=== PATIENT | male | born 1970 | race Caucasian/White ===

== ENCOUNTER 2020-01-04 08:53 | Inpatient (IN) | payer OTHER ==
[2020-01-04] MEDS ORDERED: MIDAZOLAM HCL 2 MG/2 ML SINGLE DOSE VIAL ONE ×4 (10:56→13:23)
[2020-01-04] MEDS ORDERED: SODIUM CHLORIDE 0.9% P/F 10 ML VIAL IJ ONE (10:56)
[2020-01-04] MEDS ORDERED: BUPIVACAINE LIPOSOME/PF (EXPAREL) 266 MG/20 ML VIAL ONE (10:56)
--- NOTE | 2020-01-04 11:34 | HP ---
History & Physical Update - History History: No Change - Physical Physical: No Change - Assessment Assessment: No Change - Plan Plan: No Change
[2020-01-04] MEDS ORDERED: PROPOFOL 20 ML ONE ×6 (11:57)
[2020-01-04] MEDS ORDERED: SUCCINYLCHOLINE CHLORIDE 200 MG/10 ML SYRINGE ONE (11:58)
[2020-01-04] MEDS ORDERED: FLUTICASONE PROP 0.05% 16 GM NASAL SPRAY NS PRN (11:59)
[2020-01-04] MEDS ORDERED: CEFAZOLIN 3 GM in DEXTROSE 5%-WATER - 100 ML IVPB ONE (12:00)
[2020-01-04] MEDS ORDERED: TRANEXAMIC ACID 1000 MG/10 ML VIAL IVPUSH ONE (12:00)
--- NOTE | 2020-01-04 12:01 | PN ---
Progress Note (short form) - Note Progress Note: 49M s/p RIGHT femur osteotomy, tumor curettage/biopsy, bone graft, plate fixation POD #0. -Pain control: per anaesthesia team. -DVT PPx: -Chemical: ASA 81mg PO BID x 6 weeks. -Mechanical: JOCE's, SCD's. -Incentive spirometry q15 min. -PT/OT/Rehab, OOB. -TTBW RLE. -Post-op Ancef x 3 doses. -f/u post-op TOV: 8 hours max. -f/u AM labs. -Diet as tolerated. -Care per medical hospitalist team. -Discharge planning: f/u [facility] [place] [facility] 7-10 days after discharge; call for appointment . -Will follow. Fabien Durbin MD (Orthopaedic Surgery).
[2020-01-04] MEDS ORDERED: ceFAZolin SODIUM 1 GM VIAL ONE ×2 (12:09→14:42)
[2020-01-04] MEDS ORDERED: VANCOMYCIN 1,000 MG VIAL (RESTRICTED TO ID ONLY) ONE (12:12)
[2020-01-04] MEDS ORDERED: ePHEDrine SULFATE 50 MG/1 ML AMPULE ONE (12:37)
[2020-01-04] MEDS ORDERED: TRANEXAMIC ACID 1000 MG/10 ML VIAL ONE (14:37)
[2020-01-04] MEDS ORDERED: MAGNESIUM HYDROX 2400MG/30ML ORAL SUSPENSION 30 ML CUP PO PRN (15:18)
[2020-01-04] MEDS ORDERED: MAG HYDROX/AL HYDROX/SIMETH 30 ML UNIT-DOSE CUP PO PRN (15:18)
[2020-01-04] MEDS ORDERED: ONDANSETRON 4 MG/2 ML VIAL IVPUSH PRN ×2 (15:18→15:27)
--- NOTE | 2020-01-04 15:18 | OP ---
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 Osteotomy. 2. Tumor curettage/biopsy. 3. Bone allograft (35cc). 4. Plate fixation Implants: 8-hole Synthes lateral condylar femoral plate Post-Operative Diagnosis: Same as Pre-op Surgeon: Fabien Durbin Android Framework Developer: Trevor Durbin Anesthesiologist/ANIMAL DAMAGE CONTROL AGENT: Brendon Carpenter Anesthesia: Spinal Specimens Removed: Right femoral intramedullary content - ? osteochondroma Estimated Blood Loss (mls): 100 Drains & Tubes with Location: 1 x deep HemoVac (subfascial) Fluid Volume Replaced (mls): 1,300 (Crystalloid) Operative Report Dictated: Yes
[2020-01-04] MEDS ORDERED: KETOROLAC TROMETHAMINE 30 MG/1 ML VIAL ONE (15:23)
[2020-01-04] MEDS ORDERED: oxyCODONE HCL 5 MG TABLET PO PRN (15:27)
[2020-01-04] MEDS ORDERED: PROMETHAZINE HCL 25 MG/1 ML VIAL IVPUSH PRN (15:27)
[2020-01-04] MEDS ORDERED: KETOROLAC TROMETHAMINE 30 MG/1 ML VIAL IVPUSH ONE (15:28)
[2020-01-04] MEDS ORDERED: LACTATED RINGERS SOLUTION 1,000 ML IV SCH (15:30)
[2020-01-04] MEDS: ACETAMINOPHEN 325 MG TABLET (FP) PO SCH ×2 (15:55→21:20)
[2020-01-04] MEDS: oxyCODONE HCL 5 MG TABLET PO PRN ×2 (17:08→21:21)
[2020-01-04] MEDS ORDERED: PT OWN MED DRAWER 7, Y5N ONE (21:11)
[2020-01-04] MEDS: CEFAZOLIN 3 GM in DEXTROSE 5%-WATER - 100 ML IVPB SCH (21:20)
[2020-01-04] MEDS: ASPIRIN COATED 81 MG TABLET.EC PO SCH (21:21)
[2020-01-04] MEDS: SENNOSIDES/DOCUSATE COMBO (SENNA PLUS) TABLET (UD) PO SCH (21:21)
[2020-01-04] MEDS: ALBUTEROL SO4 HFA INHALER IH SCH (21:22)
[2020-01-04] MEDS ORDERED: ASPIRIN 325 MG TABLET PO SCH (22:00)
[2020-01-04] MEDS: KETOROLAC TROMETHAMINE 30 MG/1 ML VIAL IVPUSH PRN (23:42)
[2020-01-05] MEDS: ACETAMINOPHEN 325 MG TABLET (FP) PO SCH ×2 (03:11→09:52)
[2020-01-05] MEDS: CEFAZOLIN 3 GM in DEXTROSE 5%-WATER - 100 ML IVPB SCH ×2 (03:12→09:36)
--- NOTE | 2020-01-05 07:49 | PN ---
Progress Note (short form) - Note Progress Note: ORTHOPAEDIC SURGERY POD #1 Pt seen and examined. Doing well post op. Pain well controlled. Has been oob ambulating with rolling walker assist. Passing flatus. Tolerating diet. Voiding without issue. Denies cp/sob, n/v/d. Last Vital Signs Temp Pulse Resp BP Pulse Ox 98.0 F 73 18 112/60 98 01/05/20 06:00 01/05/20 06:00 01/05/20 06:00 01/05/20 06:00 01/05/20 06:00 GEN: A&0x3, NAD CV: RRR Lungs: Unlabored respirations on room air ABD: soft, non-distended, non-tender. RLE: hemovac in place with 215 sanguinous drainage in reservoir. Surgical dressing c/d/i. Compartments soft, no calf tenderness or swelling noted b/l. TEDs/SCDS in place b/l. 5/5 dorsi/plantar flexion b/l, 5/5 EHl/FHL b/l, SILT b/l les. A/P: 49 y/o M with history ofRight femur enchondroma/osteosarcoma. Now POD #1 s/p s/p Right femur open: 1. Osteotomy. 2. Tumor curettage/biopsy. 3. Bone allograft (35cc). 4. Plate fixation. Pt doing well post-operatively. Afeb rile, VSS. Pain controlled. -Pain control as ordered -DVT PPx: Chemical: ASA 81 mg po BID x 6 weeks, Mechanical: JOCE's, SCD's -Incentive Spirometry -PT/OT/Rehab, OOB -WBAT RLE -Keep drain in place, monitor I&Os -f/u am labs -Home meds ordered as appropriate -Care per medical hospitalist team. Above plan discussed with Drs. Westfall and víctor
--- NOTE | 2020-01-05 08:09 | OP ---
DATE OF OPERATION: DATE OF DICTATION: 01/04/2020 SURGEON: Fabien Durbin MD MOLECULAR MODELER: Trevor Durbin MD PREOPERATIVE DIAGNOSIS: Low-grade chondrocarcinoma right femur. POSTOPERATIVE DIAGNOSIS: Low-grade chondrocarcinoma right femur. OPERATION: 1. Osteotomy, right femur with prophylactic plating of right femur/internal fixation. ([id number]) 2. Curettage, distal diaphysis and metaphysis with right femur with bone allograft packing. ([id number]) ANESTHESIA: Conscious sedation with spinal anesthesia and peripheral nerve block. ANTIBIOTICS GIVEN: Ancef 2 g, 1 g vancomycin preoperative; 1 g Ancef given at the time of release of tourniquet. TOURNIQUET TIME: About 2 hours and 20 minutes. BLOOD LOSS: Approximately 100 mL. INDICATION: Patient presented for a knee arthritis, but after careful clinical as well as radiological investigation, an enchondromatous tumor encountered in the diaphyseal-metaphyseal region of the bone, the concern was localized pain with associated expansion of bone with endosteal irregularity but stippled calcification indicative of cartilaginous tumor is clearly noted radiologically. OPERATION DETAILS: The patient correctly identified, brought to operating room. Right lower extremity was prepped, free draped in the routine manner with Betadine scrub solution, wiped off with alcohol, DuraPrep applied. A tourniquet was applied. A lateral incision extending from fibular head right up to the proximal third of the femur. The dissection was taken through the fascia. Fascia was opened with digital dissection working the stripping angle, that is the attachment of the vastus lateralis to the interosseus muscular septum. The muscle was lifted off the bone using Hohmann retractor. The interosseus circumflex vessels were all dealt with with bipolar Bovie. No bleeding encountered. An intraoperative x-ray was taken to confirm the level of the tumor and stippled calcification. A window osteotomy measuring approximately 12 cm was performed. This was elliptical shaped osteotomy to prevent stress riser fracture. Using curets, the entire tumor was resected. We used dental mirrors to evaluate the roof, the floor, and the sidewalls of the bone bed. All tumor was resected. There was no need for burring of the bone, as microscopically there was no evidence of any tumor left residually behind. We used multiple x-rays to ensure that the pedestal was reached as well as all stippled calcification removed; this is clearly seen on the microscopic appreciation of the tissue removed. The wounds were thoroughly lavaged throughout the operation. The soft tissue was protected with a sponge, so that all spillage was onto the sponge and not onto the muscle. Once this had been performed, the canal was packed with cancellous chips. An 8-hole Synthes condylar plate was applied to the bone bed and fixed solidly with no complications. Two screws proximal; because the bone was intact, we did not think it was necessary to use 3 screws proximal to the actual end of the bone. We also fixed the bone in the osteotomy area with interrupted screws. The distal screws were evaluated both on AP and lateral x-ray and found to be well seated. Wounds were thoroughly lavaged again. Closure: Fascia 1 Vicryl, subcutaneous 1 and 2-0 Vicryl, skin gissel. Drainage: A 1/8-inch Hemovac x1. OVERALL COMMENT: Operation went extremely well with minimal blood loss. MD ROSS Aguilar/[id number] MTDD
[2020-01-05] MEDS: oxyCODONE HCL 5 MG TABLET PO PRN ×2 (08:10→19:38)
--- NOTE | 2020-01-05 08:22 | HP ---
HISTORY OF PRESENT ILLNESS: 49 year-old male with a PMH significant for HTN, HLD, hidradenitis, and right femor enchondroma/osteosarcoma, s/p right femure osteotomy, tumor curettage/biopsy, bone graft, and plate fixation on 01/04/[address] Fabien Durbin. Recent Travel: No PAST MEDICAL HISTORY: Hypertension Hyperlipidemia Hidradenitis Right femor enchondroma/osteosarcoma Renal colic PAST SURGICAL HISTORY: Right rotator cuff repair Social History: Smoking: never Alcohol: rare Drugs: no Family history: non-contributory Allergies No Known Allergies Allergy (Verified 01/03/20 11:03) HOME MEDICATIONS: Home Medications Medication Instructions Recorded Albuterol Sulfate [Albuterol 8.5 gm IH BID 01/03/20 Sulfate Hfa] Amlodipine Besylate 5 mg PO DAILY 01/03/20 Fluticasone Prop 0.05% Nasal 1 - 2 spray NS BID PRN 01/03/20 [Flonase -] Hydrochlorothiazide [Hctz -] 25 mg PO DAILY 01/03/20 Valsartan [Diovan] 160 mg PO DAILY 01/03/20 REVIEW OF SYSTEMS CONSTITUTIONAL: Absent: fever, chills, diaphoresis, generalized weakness, malaise, loss of appetite, weight change HEENT: Absent: rhinorrhea, nasal congestion, throat pain, throat swelling, difficulty swallowing, mouth swelling, ear pain, eye pain, visual changes CARDIOVASCULAR: Absent: chest pain, syncope, palpitations, irregular heart rate, lightheadedness, peripheral edema RESPIRATORY: Absent: cough, shortness of breath, dyspnea with exertion, orthopnea, wheezing, stridor, hemoptysis GASTROINTESTINAL: Absent: abdominal pain, abdominal distension, nausea, vomiting, diarrhea, constipation, melena, hematochezia GENITOURINARY: Absent: dysuria, frequency, urgency, hesitancy, hematuria, flank pain, genital pain MUSCULOSKELETAL: +RLE pain Absent: myalgia, arthralgia, joint swelling, back pain, neck pain SKIN: Absent: rash, itching, pallor HEMATOLOGIC/IMMUNOLOGIC: Absent: easy bleeding, easy bruising, lymphadenopathy, frequent infections ENDOCRINE: Absent: unexplained weight gain, unexplained weight loss, heat intolerance, cold intolerance NEUROLOGIC: Absent: headache, focal weakness or paresthesias, dizziness, unsteady gait, se izure, mental status changes, bladder or bowel incontinence PSYCHIATRIC: Absent: anxiety, depression, suicidal or homicidal ideation, hallucinations. PHYSICAL EXAMINATION Vital Signs - 24 hr 01/04/20 01/04/20 01/04/20 09:53 15:16 15:21 Temperature 98.9 F 98.4 F Pulse Rate 74 71 70 Respiratory 18 15 13 Rate Blood Pressure 140/96 148/90 147/85 O2 Sat by Pulse 96 100 100 Oximetry (%) 01/04/20 01/04/20 01/04/20 15:26 15:31 15:36 Temperature Pulse Rate 66 68 69 Respiratory 11 12 12 Rate Blood Pressure 142/87 145/79 150/75 O2 Sat by Pulse 100 100 100 Oximetry (%) 01/04/20 01/04/20 01/04/20 15:51 16:03 16:34 Temperature 98.4 F 98.1 F Pulse Rate 73 73 65 Respiratory 13 13 16 Rate Blood Pressure 141/78 141/78 126/69 O2 Sat by Pulse 100 100 100 Oximetry (%) 01/04/20 01/04/20 01/05/20 21:00 22:21 01:52 Temperature 98.8 F 98.5 F Pulse Rate 75 82 Respiratory 16 18 18 Rate Blood Pressure 126/64 122/60 O2 Sat by Pulse 94 L 97 Oximetry (%) 01/05/20 06:00 Temperature 98.0 F Pulse Rate 73 Respiratory 18 Rate Blood Pressure 112/60 O2 Sat by Pulse 98 Oximetry (%) GENERAL: Awake, alert, and fully oriented, in no acute distress. LUNGS: Breath sounds equal, clear to auscultation bilaterally. No wheezes, and no crackles. No accessory muscle use. HEART: Regular rate and rhythm, normal S1 and S2 ABDOMEN: Soft, nontender, not distended UPPER EXTREMITIES: 2+ pulses, warm, well-perfused. No cyanosis. No clubbing. No peripheral edema. RLE: Surgical dressing c/d/i NEUROLOGICAL: Cranial nerves II-XII intact. Normal speech. Laboratory Results - last 24 hr 01/04/20 01/04/20 13:37 13:39 Blood Type O POSITIVE O POSITIVE Antibody Screen Negative Crossmatch IS Only See Detail Pre op BUN 18 Cr 0.8 Hgb 14.0 Intra op EBL 100mL LR 1,300mL Hemovac Ancef 3g x 1; vanc 1.5g x 1 ASSESSMENT/PLAN: 49 year-old male with a PMH significant for HTN right femur enchondroma/osteosarcoma, s/p right femur osteotomy, tumor curettage/biopsy, bone graft, and plate fixation on 01/04/[address] Fabien Durbin. Right femur enchondroma/osteosarcoma s/p osteotomy, biopsy, bone graft, plate fixation --POD #1 --perioperative antibiotics per surgery --pain management per surgery --ASA 81mg BID --protonix --bowel regimen --incentive spirometry --Hemovac drain, monitor output --verified with pathology specimen received Hypertension --BP stable --continue amlodipine, valsartan FEN Fluids: PO intake adequate Electrolytes: replete as indicated Nutrition: regular diet DVT prophylaxis: OOB, ambulation, SCDs, TEDs, ASA 81mg BID Physical therapy Dispo: continues to require inpatient care. Full code. Family Medical History Family History: As Documented Visit type - Emergency Visit Emergency Visit: No - New Patient This patient is new to me today: Yes Date on this admission: 01/06/20 - Critical Care Critical Care patient: No
[2020-01-05 08:26] LABS: CREATININE 0.9 mg/dl (0.55-1.3); POTASSIUM 3.5 mmol/L (3.5-5.1)
[2020-01-05 08:30] LABS: HEMATOCRIT 32.7 % (35.4-49); HEMOGLOBIN 10.8 GM/dl (11.7-16.9); MCH 28.1 pg (25.7-33.7); MCHC 33.2 g/dl (32.0-35.9); MEAN CELL VOLUME 84.6 fl (80-96); PLATELET COUNT 246 K/MM3 (134-434); RBC 3.86 M/mm3 (4.00-5.60); RDW 12.9 % (11.9-15.9); WHITE BLOOD COUNT 8.3 K/mm3 (4.0-10.8)
[2020-01-05] MEDS: VALSARTAN 160 MG TABLET PO SCH (09:53)
[2020-01-05] MEDS: PANTOPRAZOLE 40 MG TABLET PO SCH (09:53)
[2020-01-05] MEDS: ASPIRIN COATED 81 MG TABLET.EC PO SCH ×2 (09:53→21:14)
[2020-01-05] MEDS: amLODIPine BESYLATE 5 MG TABLET (FP) PO SCH (09:54)
[2020-01-05] MEDS: KETOROLAC TROMETHAMINE 30 MG/1 ML VIAL IVPUSH PRN ×2 (10:06→16:45)
[2020-01-05] MEDS: SENNOSIDES/DOCUSATE COMBO (SENNA PLUS) TABLET (UD) PO SCH ×2 (10:10→21:14)
[2020-01-05] MEDS: ALBUTEROL SO4 HFA INHALER IH SCH ×2 (10:15→21:18)
[2020-01-05] MEDS: HYDROCHLOROTHIAZIDE 25 MG TABLET (FP) PO SCH (11:00)
[2020-01-05] MEDS ORDERED: ACETAMINOPHEN 1000 MG/100 ML VIAL (NON FORMULARY) IVPB PRN (11:43)
--- NOTE | 2020-01-05 13:12 | PN ---
Progress Note (short form) - Note Progress Note: ANESTHESIA POSTOP 49 YO MALE POD #1 S/P RESECTION OF RIGHT FEMUR TUMOR, SPINAL AND PNB Patient sleeping in chair. Pain responds well to IV pain medications (Acetaminophen and ketorolac). Patient tolerating PO, resting well and able to participate in PT. VSS, Afebrile Continue current care. Encouraged patient use of IS. No anesthetic complications.
[2020-01-05] MEDS: ACETAMINOPHEN 1000 MG/100 ML VIAL (NON FORMULARY) IVPB PRN ×2 (14:06→23:02)
--- NOTE | 2020-01-05 15:19 | PN ---
Physical Exam: SUBJECTIVE: Patient seen and examined OBJECTIVE: Vital Signs Period Temp Pulse Resp BP Sys/Clark Pulse Ox Last 24 Hr 98.0 F-99.6 F 65-86 11-18 112-150/60-87 94-100 GENERAL: The patient is awake, alert, and fully oriented, in no acute distress. HEAD: Normal with no signs of trauma. EYES: PERRL, extraocular movements intact, sclera anicteric, conjunctiva clear. No ptosis. ENT: Ears normal, nares patent, oropharynx clear without exudates, moist mucous membranes. NECK: Trachea midline, full range of motion, supple. LUNGS: Breath sounds equal, clear to auscultation bilaterally, no wheezes, no crackles, no accessory muscle use. HEART: Regular rate and rhythm, S1, S2 without murmur, rub or gallop. ABDOMEN: Soft, nontender, nondistended, normoactive bowel sounds, no guarding, no rebound, no hepatosplenomegaly, no masses. EXTREMITIES: 2+ pulses, warm, well-perfused, no edema. NEUROLOGICAL: Cranial nerves II through XII grossly intact. Normal speech, gait not observed. PSYCH: Normal mood, normal affect. SKIN: Warm, dry, normal turgor, no rashes or lesions noted Laboratory Results - last 24 hr 01/04/20 01/05/20 01/05/20 13:37 06:58 06:58 WBC 8.3 RBC 3.86 L Hgb 10.8 L Hct 32.7 L MCV 84.6 MCH 28.1 MCHC 33.2 RDW 12.9 Plt Count 246 MPV 8.0 Sodium 136 Potassium 3.5 Chloride 101 Carbon Dioxide 28 Anion Gap 7 L BUN 20.0 H Creatinine 0.9 Est GFR (CKD-EPI)AfAm 115.02 Est GFR (CKD-EPI)NonAf 99.24 Random Glucose 121 H Calcium 8.0 L Blood Type O POSITIVE Antibody Screen Negative Crossmatch IS Only See Detail Active Medications Generic Name Dose Route Start Last Admin Trade Name Freq PRN Reason Stop Dose Admin Acetaminophen 1,000 mg 01/05/20 14:00 01/05/20 14:06 Ofirmev Injection - IVPB 1,000 mg Q6H PRN Administration PAIN LEVEL 1-5 Al Hydroxide/Mg Hydroxide 30 ml 01/04/20 15:18 Mylanta Oral Suspension - PO Q4H PRN DYSPEPSIA Albuterol Sulfate 2 puff 01/04/20 22:00 01/05/20 10:15 Ventolin Hfa Inhaler - IH 2 puff BID [facility] Administration Amlodipine Besylate 5 mg 01/05/20 10:00 01/05/20 09:54 Norvasc - PO 5 mg DAILY [facility] Administration Aspirin 81 mg 01/04/20 22:00 01/05/20 09:53 Ecotrin - PO 81 mg BID [facility] Administration Fentanyl 50 mcg 01/04/20 15:27 Sublimaze Injection - IVPUSH [id number] PRN PAIN-PACU ORDER X 4 DOSES ONLY Fluticasone Propionate 1 - 2 spray 01/04/20 11:59 Flonase - NS BID PRN [facility]AL [facility]GESTION Hydrochlorothiazide 25 mg 01/05/20 10:00 Hctz - PO DAILY [facility] Ketorolac Tromethamine 30 mg 01/04/20 23:00 01/05/20 10:06 Toradol Injection - IVPUSH 30 mg Q8H PRN Administration PAIN LEVEL 7 - 10 Magnesium Hydroxide 30 ml 01/04/20 15:18 Milk Of Magnesia - PO PRN PRN CONSTIPATION Ondansetron HCl 4 mg 01/04/20 15:18 01/05/20 08:09 Zofran Injection IVPUSH 4 mg Q6H PRN Administration NAUSEA Ondansetron HCl 4 mg 01/04/20 15:27 Zofran Injection IVPUSH Q6H PRN NAUSEA AND/OR VOMITING Oxycodone HCl 10 mg 01/04/20 15:27 01/05/20 08:10 Roxicodone - PO 10 mg Q3H PRN Administration PAIN LEVEL 6-10 Oxycodone HCl 5 mg 01/04/20 15:27 Roxicodone - PO Q3H PRN PAIN LEVEL 1-5 Pantoprazole Sodium 40 mg 01/05/20 10:00 01/05/20 09:53 Protonix - PO 40 mg DAILY [facility] Administration Promethazine HCl 12.5 mg 01/04/20 15:27 Phenergan Injection - IVPUSH Q6H PRN NAUSEA-FOR RESCUE AFTER 15 MIN Senna/Docusate Sodium 2 tablet 01/04/20 22:00 01/04/20 21:21 Pericolace - PO 2 tablet BID [facility] Administration Valsartan 160 mg 01/05/20 10:00 01/05/20 09:53 Diovan - PO 160 mg DAILY [facility] Administration ASSESSMENT/PLAN:
[2020-01-05 22:55] VITALS: BMI 42.0
--- OUTSIDE RECORDS SUMMARY | 2020-01-06 04:36 | XMS ---
:1970 Author Organization [facility] Support Name Relationship Address Phone [employer]available [address] [place] [address] [place] [address] [employer] [address] [place] [address] Re-disclosure Warning The records that you are about to access may contain information from federally- assisted alcohol or drug abuse programs. If such information is present, then the following federally mandated warning applies: This information has been disclosed to you from records protected by federal confidentiality rules (42 CFR part 2). The federal rules prohibit you from making any further disclosure of this information unless further disclosure is expressly permitted by the written consent of the person to whom it pertains or as otherwise permitted by 42 CFR part 2. A general authorization for the release of medical or other information is NOT sufficient for this purpose. The Federal rules restrict any use of the information to criminally investigate or prosecute any alcohol or drug abuse patient.The records that you are about to access may contain highly sensitive health information, the redisclosure of which is protected by Article 27-F of the [facility] Public Health law. If you continue you may haveaccess to information: Regarding HIV / AIDS; Provided by facilities licensed or operated by the [facility] Office of Mental Health; or Provided by the [facility] Office for People With Developmental Disabilities. If such information is present, then the following [facility] mandated warning applies: This information has been disclosed to you from confidential records which are protected by state law. State law prohibits you from making any further disclosure of this information without the specific written consent of the person to whom it pertains, or as otherwise permitted by law. Any unauthorized further disclosure in violation of state law may result in a fine or fpc sentence or both. A general authorization for the release of medical or other information is NOT sufficient authorization for further disclosure. Insurance Providers Payer name Policy type Policy ID Covered Covered libertarian's Policy P yaw / Coverage libertarian ID relationship to [employer] Inf ormation type dupree SAT[employer]OP [id number] 1 HEALTH PLANS Results ID Date Data Source [id number] 12/31/2019 08:35:00 AM EDT [facility] Name Value Range Interpretation Description Data Sup porting Code Source(s) Document(s ) SARS [facility] coronavirus 2 RNA This lab was ordered by [facility] and reported by [facility]. ID Date Data Source [id number] 11/10/2019 12:00:00 AM EDT [facility] Name Value Range Interpretation Code Description Data Shirin rce(s) Supporting Document(s ) [id number] This lab was ordered by [facility]([id number]) and reported by [facility] ID Date Data Source [id number] 11/07/2019 12:00:00 AM EDT [facility] Name Value Range Interpretation Code Description Data Shirin rce(s) Supporting Document(s ) 2019-nCoV [facility] RNA XXX SHIRA+probe- Imp This lab was ordered by [facility] and reported by [employer]. ID Date Data Source [id number] 08/16/2019 08:41:00 AM EDT [facility] Name Value Range Interpretation Code Description Data Shirin rce(s) Supporting Document(s ) SARS-CoV-2 [facility] Ql SHIRA+probe This lab was ordered by [facility] and reported by [facility]. Procedure
[2020-01-06] MEDS: oxyCODONE HCL 5 MG TABLET PO PRN ×4 (05:52→23:05)
[2020-01-06 07:32] LABS: HEMATOCRIT 31.9 % (35.4-49); HEMOGLOBIN 10.6 GM/dl (11.7-16.9); MCH 28.9 pg (25.7-33.7); MCHC 33.1 g/dl (32.0-35.9); MEAN CELL VOLUME 87.3 fl (80-96); MEAN PLT VOLUME 8.5 fl (7.5-11.1); PLATELET COUNT 239 K/MM3 (134-434); RBC 3.66 M/mm3 (4.00-5.60); RDW 13.2 % (11.9-15.9); WHITE BLOOD COUNT 9.6 K/mm3 (4.0-10.8)
[2020-01-06] MEDS: PANTOPRAZOLE 40 MG TABLET PO SCH (09:43)
[2020-01-06] MEDS: amLODIPine BESYLATE 5 MG TABLET (FP) PO SCH (09:43)
[2020-01-06] MEDS: VALSARTAN 160 MG TABLET PO SCH (09:43)
[2020-01-06] MEDS: HYDROCHLOROTHIAZIDE 25 MG TABLET (FP) PO SCH (09:43)
[2020-01-06] MEDS: ASPIRIN COATED 81 MG TABLET.EC PO SCH ×2 (09:43→21:19)
[2020-01-06] MEDS: SENNOSIDES/DOCUSATE COMBO (SENNA PLUS) TABLET (UD) PO SCH ×2 (09:43→21:19)
[2020-01-06] MEDS: ALBUTEROL SO4 HFA INHALER IH SCH ×2 (09:48→21:26)
--- NOTE | 2020-01-06 10:41 | RAPID ---
Physical Examination Vital Signs: Vital Signs Temperature 98.6 F 01/06/20 06:00 Pulse Rate 81 01/06/20 06:00 Respiratory Rate 18 01/06/20 08:11 Blood Pressure 132/74 01/06/20 06:00 O2 Sat by Pulse Oximetry (%) 99 01/06/20 08:11 Patient seen and examined Summoned to see patient in PT room. Seated in wheelchair, eyes closed, weak, pale, not diaphoretic. Denied chest pain, shortness of breath, said he did feel some palpitations. Initial BP in PT room 65/35, p60, SpO2 99%. Patient brought back to his room and placed in bed with help of security for lift assist. NS started wide open, NRB placed. Repeat BP 125/57. After about 15 minutes of fluids back to baseline mentation. ECG: sinus rhythm, no acute ischemia Labs drawn CXR: unremarkable General: A&Ox3 Neuro: CN II to XII grossly intact Lungs: CTA CV: RRR, S1, S2 LLE: Worsening swelling from thigh to knee, tense edema; surgical dressing c/d/i; leg is exquisitely tender; Hemovac drained of 10ccs (put out 40ccs overnight) A&P Syncopal episode --possibly vasovagal, IV fluids running --ECG: no acute ischemia --serial troponins --cardiac monitoring Post operative swelling --Hemovac has put out 50cc's over past 18 hours --xrays ordered --Dr. Gifty dyer Labs: CBC, BMP 01/06/20 07:20 01/05/20 06:58
[2020-01-06 11:15] LABS: BASO % 0.5 % (0-2.0); EOS % 3.4 % (0-4.5); HEMATOCRIT 29.3 % (35.4-49); HEMOGLOBIN 10.1 GM/dl (11.7-16.9); LYMPH % 12.2 % (8-40); MCH 29.1 pg (25.7-33.7); MCHC 34.3 g/dl (32.0-35.9); MEAN CELL VOLUME 84.8 fl (80-96); MEAN PLT VOLUME 8.3 fl (7.5-11.1); MONO % 8.2 % (3.8-10.2); NEUT % 75.7 % (42.8-82.8); PLATELET COUNT 228 K/MM3 (134-434); RBC 3.46 M/mm3 (4.00-5.60); RDW 12.9 % (11.9-15.9); WHITE BLOOD COUNT 8.1 K/mm3 (4.0-10.8)
[2020-01-06 11:54] LABS: ALBUMIN 3.2 g/dl (3.4-5.0); BILIRUBIN,TOTAL 0.8 mg/dl (0.2-1); CALCIUM 7.8 mg/dl (8.5-10); CREATININE 0.9 mg/dl (0.55-1.3); MAGNESIUM 1.9 mg/dL (1.8-2.4); POTASSIUM 3.9 mmol/L (3.5-5.1); TOT PROT 5.8 g/dl (6.4-8.2)
--- NOTE | 2020-01-06 13:10 | PN ---
Progress Note (short form) - Note Progress Note: 49M s/p RIGHT femur osteotomy, tumor curettage/biopsy, bone graft, plate fixation POD #2. (+) Syncopal/vasovagal event today during PT. EKG normal. Pain well controlled. Pt. denies overnight history of headaches, chest pain, shortness of breath, nausea, vomiting, chills, & sweats. (+) Voiding; (+) Flatus; (-) BM. Ambulated with PT today. All labs and vitals reviewed. PE: AAO x 3, NAD. R-Thigh: (+) Swelling. Diffuse (+) TTP. Dressing C/D/I. Drain intact & in place. RLE SensoriMotor Status: fully intact. X-Rays Right Hip, Femur, Knee, Tib/Fib: No acute fracture nor dislocation. 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 49M s/p RIGHT femur osteotomy, tumor curettage/biopsy, bone graft, plate fixation POD #2. -f/u labs including cardiac enzymes. -f/u cardiology consult. -Pain control. -DVT PPx: -Chemical: ASA 81mg PO BID x 6 weeks. -Mechanical: JOCE's, SCD's. -Incentive spirometry q15 min. -PT/OT/Rehab, OOB. -TTBW RLE. -f/u OR pathology & bacteriology reports. -f/u post-op TOV: 8 hours max. -f/u AM labs. -Diet as tolerated. -Care per medical hospitalist team. -Discharge planning: f/u [facility] [place] [facility] 7-10 days after discharge; call for appointment . -Will follow. Fabien Durbin MD (Orthopaedic Surgery).
--- NOTE | 2020-01-06 14:21 | CON.CARD ---
Consult Consult Specialty:: Cardiology Referred by:: Daily Iverson NP Reason for Consultation:: Syncope - History of Present Illness Chief Complaint: Syncope History of Present Illness: 49 year-old male with a PMH significant for nephrolithiasis, HTN, HLD, hidradenitis, and right femor enchondroma/osteosarcoma, s/p right femure osteo gucci, tumor curettage/biopsy, bone graft, and plate fixation on 01/04/[address] Fabien Durbin. While undergoing PT, reports dizziness, pallor, hypotension 65/35, p60, SpO2 99%, dyspnea followed by syncopal episode, denies diaphoresis, nausea, emesis, chest pain. He received opiate and 3 antihypertensive meds prior, HCTZ since d/lelo, IVF resuscitation started with relief of symptoms. - History Source History Provided By: Patient Limitations to Obtaining History: No Limitations - Smoking History Smoking history: Never smoked Have you smoked in the past 12 months: No Home Medications - Allergies Allergies/Adverse Reactions: Allergies Allergy/AdvReac Type Severity Reaction Status Date / Time No Known Allergies Allergy Verified 01/03/20 11:03 - Home Medications Home Medications: Ambulatory Orders Albuterol Sulfate [Albuterol Sulfate Hfa] 8.5 gm IH BID 01/03/20 Amlodipine Besylate 5 mg PO DAILY 01/03/20 Fluticasone Prop 0.05% Nasal [Flonase -] 1 - 2 spray NS BID PRN 01/03/20 Hydrochlorothiazide [Hctz -] 25 mg PO DAILY 01/03/20 Valsartan [Diovan] 160 mg PO DAILY 01/03/20 Review of Systems - Review of Systems Neurological: reports: Dizziness, Syncope Vital Signs: Vital Signs Temperature 97 F L 01/06/20 10:35 Pulse Rate 58 L 01/06/20 10:35 Respiratory Rate 16 01/06/20 10:35 Blood Pressure 120/60 01/06/20 10:35 O2 Sat by Pulse Oximetry (%) 100 01/06/20 10:35 Constitutional: Yes: No Distress, Calm Neck: Yes: Supple Respiratory: Yes: Regular, Diminished Gastrointestinal: Yes: Soft, Hypoactive Bowel Sounds Cardiovascular: Yes: Regular Rate and Rhythm JVD: No Carotid Bruit: No Heart Sounds: Yes: S1, S2 Extremities: Yes: Other (RLE: Worsening swelling from thigh to knee, tense edema; surgical dressing c/d/i; leg is exquisitely tender; Hemovac drained of 10ccs (put out 40ccs overnight)) Edema: Yes - Other Data Labs, Other Data: CBC, BMP 01/06/20 11:02 01/06/20 10:39 Troponin, BNP 01/06/20 10:43 Troponin I 0.03 Troponin, BNP 01/06/20 10:43 Troponin I 0.03 NSR @ 78 mod criteria LVH inferior Qs similar to previous 12/09/2019 Ejection Fraction %: LVEF > or = 40 % Imaging - Results Chest X-ray: Report Reviewed (NAD) Problem List - Problems (1) Syncope Code(s): R55 - SYNCOPE AND COLLAPSE Qualifiers: Syncope type: vasovagal syncope Qualified Code(s): R55 - Syncope and collapse (2) Hypertension Code(s): I10 - ESSENTIAL (PRIMARY) HYPERTENSION Qualifiers: Hypertension type: essential hypertension Qualified Code(s): I10 - Essential (primary) hypertension Assessment/Plan 1. Syncope likely vasovagal etiology exacerbated by mediations 2. s/p RIGHT femur osteotomy, tumor curettage/biopsy, bone graft, plate fixation POD #2, without evidence of post-op bleeding 3. HTN P:1. Agree with d/c HCTZ and IVF resuscitation 2. Continue Norvasc 5 qd and Diovan 160 qd as hemodynamics tolerate 3. Monitor hemovac output 4. Cycling cardiac enzymes, ecg reviewed w/o changes 5. PT as tolerated, analgesia as needed, DVT prophylaxis 6. Thank you for consultative opportunity
--- NOTE | 2020-01-06 14:32 | EKG ---
Test Reason : Blood Pressure : / mmHG Vent. Rate : 078 BPM Atrial Rate : 078 BPM P-R Int : 196 ms QRS Dur : 098 ms QT Int : 362 ms P-R-T Axes : 051 003 016 degrees QTc Int : 412 ms NORMAL SINUS RHYTHM MODERATE VOLTAGE CRITERIA FOR LVH, MAY BE NORMAL VARIANT CANNOT RULE OUT INFERIOR INFARCT , AGE UNDETERMINED ABNORMAL ECG NO PREVIOUS ECGS AVAILABLE Confirmed by HEATHER NG MD ([id number]) on 01/06/2020 2:32:20 PM Referred By: Fabien Durbin Confirmed By:HEATHER NG MD
[2020-01-06 18:14] LABS: HEMATOCRIT 30.6 % (35.4-49); HEMOGLOBIN 10.3 GM/dl (11.7-16.9); MCHC 33.7 g/dl (32.0-35.9); MEAN CELL VOLUME 86.2 fl (80-96); MEAN PLT VOLUME 8.2 fl (7.5-11.1); PLATELET COUNT 256 K/MM3 (134-434); RBC 3.55 M/mm3 (4.00-5.60); RDW 13.1 % (11.9-15.9)
[2020-01-06] MEDS: ACETAMINOPHEN 1000 MG/100 ML VIAL (NON FORMULARY) IVPB PRN (19:33)
[2020-01-07] MEDS: oxyCODONE HCL 5 MG TABLET PO PRN ×2 (06:49→12:55)
--- NOTE | 2020-01-07 08:51 | PN ---
Physical Exam: SUBJECTIVE: Patient seen and examined, pt in recliner, POD #3, s/p osteotomy, biopsy, bone graft, plate fixation pt with increased swelling, pain at surgical site, unable to ambulate. pt being trf to [facility] Dr. Durbin to see pt here, r/o DVT, compartment syndrome pt denies chest pain, sob, dizziness, OBJECTIVE: Vital Signs Period Temp Pulse Resp BP Sys/Clark Pulse Ox Last 24 Hr 97 F-100.4 F 58-88 16-18 117-144/56-73 98-100 GENERAL: The patient is awake, alert, and fully oriented, in no acute distress. HEAD: Normal with no signs of trauma. EYES: PERRL, extraocular movements intact, sclera anicteric, conjunctiva clear. No ptosis. ENT: Ears normal, nares patent, oropharynx clear without exudates, moist mucous membranes. NECK: Trachea midline, full range of motion, supple. LUNGS: Breath sounds equal, clear to auscultation bilaterally, no wheezes, no crackles, no accessory muscle use. HEART: Regular rate and rhythm, S1, S2 without murmur, rub or gallop. ABDOMEN: Soft, nontender, nondistended, normoactive bowel sounds, no guarding, no rebound, no hepatosplenomegaly, no masses. EXTREMITIES: 2+ pulses, warm, well-perfused, no edema. Right Ext,tense edema, swelling from thigh to knee, decreased output in hemovac NEUROLOGICAL: Cranial nerves II through XII grossly intact. Normal speech, gait not observed. PSYCH: Normal mood, normal affect. SKIN: Warm, dry, normal turgor, no rashes or lesions noted Laboratory Results - last 24 hr 01/04/20 01/06/20 01/06/20 13:37 10:39 10:41 WBC RBC Hgb Hct MCV MCH MCHC RDW Plt Count MPV Absolute Neuts (auto) Neutrophils % Lymphocytes % Monocytes % Eosinophils % Basophils % PTT (Actin FS) 28.7 Sodium 137 Potassium 3.9 Chloride 102 Carbon Dioxide 28 Anion Gap 7 L BUN 17.0 Creatinine 0.9 Est GFR (CKD-EPI)AfAm 115.02 Est GFR (CKD-EPI)NonAf 99.24 Random Glucose 141 H Calcium 7.8 L Magnesium 1.9 Total Bilirubin 0.8 AST 76 H ALT 43 Alkaline Phosphatase 74 Troponin I Total Protein 5.8 L Albumin 3.2 L Blood Type O POSITIVE Antibody Screen Negative Crossmatch IS Only See Detail 01/06/20 01/06/20 01/06/20 10:43 11:02 18:00 WBC 8.1 RBC 3.46 L Hgb 10.1 L Hct 29.3 L MCV 84.8 MCH 29.1 MCHC 34.3 RDW 12.9 Plt Count 228 MPV 8.3 Absolute Neuts (auto) 6.1 Neutrophils % 75.7 Lymphocytes % 12.2 Monocytes % 8.2 Eosinophils % 3.4 Basophils % 0.5 PTT (Actin FS) Sodium Potassium Chloride Carbon Dioxide Anion Gap BUN Creatinine Est GFR (CKD-EPI)AfAm Est GFR (CKD-EPI)NonAf Random Glucose Calcium Magnesium Total Bilirubin AST ALT Alkaline Phosphatase Troponin I 0.03 0.05 Total Protein Albumin Blood Type Antibody Screen Crossmatch IS Only 01/06/20 18:00 WBC 10.0 RBC 3.55 L Hgb 10.3 L Hct 30.6 L MCV 86.2 MCH 29.0 MCHC 33.7 RDW 13.1 Plt Count 256 MPV 8.2 Absolute Neuts (auto) Neutrophils % Lymphocytes % Monocytes % Eosinophils % Basophils % PTT (Actin FS) Sodium Potassium Chloride Carbon Dioxide Anion Gap BUN Creatinine Est GFR (CKD-EPI)AfAm Est GFR (CKD-EPI)NonAf Random Glucose Calcium Magnesium Total Bilirubin AST ALT Alkaline Phosphatase Troponin I Total Protein Albumin Blood Type Antibody Screen Crossmatch IS Only Active Medications Generic Name Dose Route Start Last Admin Trade Name Freq PRN Reason Stop Dose Admin Acetaminophen 1,000 mg 01/05/20 14:00 01/06/20 19:33 Ofirmev Injection - IVPB 1,000 mg Q6H PRN Administration PAIN LEVEL 1-5 Al Hydroxide/Mg Hydroxide 30 ml 01/04/20 15:18 Mylanta Oral Suspension - PO Q4H PRN DYSPEPSIA Albuterol Sulfate 2 puff 01/04/20 22:00 01/06/20 21:26 Ventolin Hfa Inhaler - IH 2 puff BID [facility] Administration Amlodipine Besylate 5 mg 01/05/20 10:00 01/06/20 09:43 Norvasc - PO 5 mg DAILY [facility] Administration Aspirin 81 mg 01/04/20 22:00 01/06/20 21:19 Ecotrin - PO 81 mg BID [facility] Administration Fentanyl 50 mcg 01/04/20 15:27 Sublimaze Injection - IVPUSH [id number] PRN PAIN-PACU ORDER X 4 DOSES ONLY Fluticasone Propionate 1 - 2 spray 01/04/20 11:59 01/05/20 21:19 Flonase - NS 1 spray BID PRN Administration NASAL CONGESTION Magnesium Hydroxide 30 ml 01/04/20 15:18 Milk Of Magnesia - PO PRN PRN CONSTIPATION Ondansetron HCl 4 mg 01/04/20 15:18 01/05/20 08:09 Zofran Injection IVPUSH 4 mg Q6H PRN Administration NAUSEA Ondansetron HCl 4 mg 01/04/20 15:27 Zofran Injection IVPUSH Q6H PRN NAUSEA AND/OR VOMITING Oxycodone HCl 5 mg 01/06/20 15:46 01/07/20 06:49 Roxicodone - PO 5 mg Q6H PRN Administration PAIN LEVEL 1-5 Pantoprazole Sodium 40 mg 01/05/20 10:00 01/06/20 09:43 Protonix - PO 40 mg DAILY [facility] Administration Promethazine HCl 12.5 mg 01/04/20 15:27 Phenergan Injection - IVPUSH Q6H PRN NAUSEA-FOR RESCUE AFTER 15 MIN Senna/Docusate Sodium 2 tablet 01/04/20 22:00 01/06/20 21:19 Pericolace - PO 2 tablet BID [facility] Administration Valsartan 160 mg 01/05/20 10:00 01/06/20 09:43 Diovan - PO 160 mg DAILY [facility] Administration ASSESSMENT/PLAN: 49 year-old male with a PMH significant for HTN admitted for right femur enchondroma/osteosarcoma, s/p right femur osteotomy, tumor curettage/biopsy, bone graft, and plate fixation on 01/04/[address] Fabien Durbin. #Right femur enchondroma/osteosarcoma s/p osteotomy, biopsy, bone graft, plate fixation --POD #3 --NPO-trf to [facility], for possible OR r/o DVT, compartment syndrome --pain management per surgery --ASA 81mg BID --protonix --bowel regimen --incentive spirometry --Hemovac drain, monitor output #Hypertension --BP stable --continue amlodipine, valsartan FEN Fluids: PO intake adequate Electrolytes: replete as indicated Nutrition: regular diet DVT prophylaxis: OOB, ambulation, SCDs, TEDs, ASA 81mg BID Physical therapy Dispo: continues to require inpatient care. Full code. Visit type - Emergency Visit Emergency Visit: No - New Patient This patient is new to me today: Yes Date on this admission: 01/07/20 - Critical Care Critical Care patient: No - Discharge Referral Referred to [facility] Med P.C.: No
[2020-01-07 09:39] LABS: BASO % 0.5 % (0-2.0); EOS % 1.6 % (0-4.5); HEMATOCRIT 29.8 % (35.4-49); LYMPH % 12.1 % (8-40); MCH 28.6 pg (25.7-33.7); MCHC 33.6 g/dl (32.0-35.9); MEAN CELL VOLUME 85.3 fl (80-96); MONO % 6.9 % (3.8-10.2); NEUT % 78.9 % (42.8-82.8); PLATELET COUNT 281 K/MM3 (134-434); RDW 13.1 % (11.9-15.9); WHITE BLOOD COUNT 10.8 K/mm3 (4.0-10.8)
[2020-01-07 09:47] LABS: ALBUMIN 3.2 g/dl (3.4-5.0); BILIRUBIN,TOTAL 0.6 mg/dl (0.2-1); CALCIUM 8.1 mg/dl (8.5-10); CREATININE 0.8 mg/dl (0.55-1.3); TOT PROT 6.1 g/dl (6.4-8.2)
[2020-01-07] MEDS: amLODIPine BESYLATE 5 MG TABLET (FP) PO SCH (12:55)
[2020-01-07] MEDS: VALSARTAN 160 MG TABLET PO SCH (12:56)
[2020-01-07] MEDS: ASPIRIN COATED 81 MG TABLET.EC PO SCH (13:09)
[2020-01-07] MEDS: SENNOSIDES/DOCUSATE COMBO (SENNA PLUS) TABLET (UD) PO SCH (13:09)
[2020-01-07] MEDS: ALBUTEROL SO4 HFA INHALER IH SCH (13:09)
[2020-01-07] MEDS: PANTOPRAZOLE 40 MG TABLET PO SCH (13:09)
[2020-01-07] MEDS ORDERED: oxyCODONE HCL 5 MG TABLET PO PRN ×2 (13:35→16:29)
[2020-01-07] MEDS: ACETAMINOPHEN 1000 MG/100 ML VIAL (NON FORMULARY) IVPB PRN (13:49)
[2020-01-07] MEDS ORDERED: MIDAZOLAM HCL 2 MG/2 ML SINGLE DOSE VIAL ONE ×2 (15:21→16:50)
[2020-01-07] MEDS ORDERED: LIDOCAINE HCL/PF 2% SDV 5ML VIAL ONE (15:30)
[2020-01-07] MEDS ORDERED: KETOROLAC TROMETHAMINE 30 MG/1 ML VIAL ONE (15:30)
[2020-01-07] MEDS ORDERED: DEXAMETHASONE SOD PHOSPHATE 4 MG/1 ML VIAL ONE (15:30)
[2020-01-07] MEDS ORDERED: ONDANSETRON 4 MG/2 ML VIAL ONE (15:30)
[2020-01-07] MEDS ORDERED: ONDANSETRON 4 MG/2 ML VIAL IVPUSH PRN ×2 (15:36→22:59)
[2020-01-07 15:40] LABS: INR 1.22 (0.83-1.09); PROTHROMBIN TIME (PATIENT) 14.4 SEC (9.7-13.0)
--- NOTE | 2020-01-07 15:43 | PN ---
Progress Note, Physician Chief Complaint: Events noted Post op right lower extremity No further episode of syncope Denies dizziness History of Present Illness: Patient was seen and examined. Awake and alert. Chart was reviewed Denies chest pain, SOB or palpitations - Current Medication List Current Medications: Active Medications Acetaminophen (Ofirmev Injection -) 1,000 mg IVPB Q6H PRN PRN Reason: PAIN LEVEL 1-5 Last Admin: 01/07/20 13:49 Dose: 1,000 mg Documented by: Al Hydroxide/Mg Hydroxide (Mylanta Oral Suspension -) 30 ml PO Q4H PRN PRN Reason: DYSPEPSIA Albuterol Sulfate (Ventolin Hfa Inhaler -) 2 puff IH BID [facility] Last Admin: 01/07/20 13:09 Dose: 2 puff Documented by: Amlodipine Besylate (Norvasc -) 5 mg PO DAILY [facility] Last Admin: 01/07/20 12:55 Dose: 5 mg Documented by: Aspirin (Ecotrin -) 81 mg PO BID [facility] Last Admin: 01/07/20 13:09 Dose: Not Given Documented by: Fentanyl (Sublimaze Injection -) 50 mcg IVPUSH [id number] PRN PRN Reason: PAIN-PACU ORDER X 4 DOSES ONLY Fentanyl (Sublimaze Injection -) 50 mcg IVPUSH [id number] PRN PRN Reason: PAIN-PACU ORDER X 4 DOSES ONLY Fluticasone Propionate (Flonase -) 1 - 2 spray NS BID PRN PRN Reason: NASAL CONGESTION Last Admin: 01/05/20 21:19 Dose: 1 spray Documented by: Lactated Ringer's (Lactated Ringers Solution) 1,000 mls @ 75 mls/hr IV ASDIR [facility] Magnesium Hydroxide (Milk Of Magnesia -) 30 ml PO PRN PRN PRN Reason: CONSTIPATION Ondansetron HCl (Zofran Injection) 4 mg IVPUSH Q6H PRN PRN Reason: NAUSEA Last Admin: 01/05/20 08:09 Dose: 4 mg Documented by: Ondansetron HCl (Zofran Injection) 4 mg IVPUSH Q6H PRN PRN Reason: NAUSEA AND/OR VOMITING Ondansetron HCl (Zofran Injection) 4 mg IVPUSH Q6H PRN PRN Reason: NAUSEA AND/OR VOMITING Oxycodone HCl (Roxicodone -) 10 mg PO Q6H PRN PRN Reason: PAIN LEVEL 1-5 Pantoprazole Sodium (Protonix -) 40 mg PO DAILY [facility] Last Admin: 01/07/20 13:09 Dose: Not Given Documented by: Promethazine HCl (Phenergan Injection -) 12.5 mg IVPUSH Q6H PRN PRN Reason: NAUSEA-FOR RESCUE AFTER 15 MIN Senna/Docusate Sodium (Pericolace -) 2 tablet PO BID [facility] Last Admin: 01/07/20 13:09 Dose: Not Given Documented by: Valsartan (Diovan -) 160 mg PO DAILY [facility] Last Admin: 01/07/20 12:56 Dose: 160 mg Documented by: - Objective Vital Signs: Vital Signs Temperature 98.0 F 01/07/20 14:35 Pulse Rate 63 01/07/20 14:35 Respiratory Rate 18 01/07/20 14:35 Blood Pressure 125/67 01/07/20 14:35 O2 Sat by Pulse Oximetry (%) 98 01/07/20 14:35 Neck: Yes: Supple Cardiovascular: Yes: Regular Rate and Rhythm, S1, S2. No: Murmur Respiratory: Yes: CTA Bilaterally Gastrointestinal: Yes: Normal Bowel Sounds, Soft. No: Tenderness Extremities: Yes: Other (Post op right LE - drain in place) Labs: CBC, BMP 01/07/20 09:15 01/07/20 09:15 Problem List - Problems (1) Hypertension Code(s): I10 - ESSENTIAL (PRIMARY) HYPERTENSION Qualifiers: Hypertension type: essential hypertension Qualified Code(s): I10 - Essential (primary) hypertension (2) Syncope Code(s): R55 - SYNCOPE AND COLLAPSE Qualifiers: Syncope type: vasovagal syncope Qualified Code(s): R55 - Syncope and collapse Assessment/Plan 1. Syncope likely vasovagal 2. Post RIGHT femur osteotomy, tumor curettage/biopsy, bone graft, plate fixation POD #3, without evidence of post-op bleeding 3. HTN PLAN: 1. Post operative management per surgical team 2. Continue Norvasc 5 mg QD and Diovan 160 mg QD as hemodynamics tolerate 3. Monitor hemovac output 4. Troponin negative 5. PT as tolerated, analgesia as needed and DVT prophylaxis Michael Loco MD
[2020-01-07] MEDS ORDERED: LACTATED RINGERS SOLUTION 1,000 ML IV SCH ×3 (15:45→22:59)
[2020-01-07] MEDS ORDERED: ROCURONIUM BROMIDE 50 MG/5 ML SYRINGE ONE (17:09)
[2020-01-07] MEDS ORDERED: ceFAZolin SODIUM 1 GM VIAL IVPB ONE (17:15)
[2020-01-07] MEDS ORDERED: PROPOFOL 20 ML ONE ×2 (17:54)
[2020-01-07] MEDS ORDERED: SUCCINYLCHOLINE CHLORIDE 200 MG/10 ML SYRINGE ONE (17:54)
[2020-01-07] MEDS ORDERED: GLYCOPYRROLATE 0.2 MG/1 ML VIAL ONE ×2 (18:01→18:04)
[2020-01-07] MEDS ORDERED: NEOSTIGMINE METHYLSULFATE 0.5 MG/1 ML - 10 ML MDV ONE (18:01)
[2020-01-07] MEDS ORDERED: TRANEXAMIC ACID 1000 MG/10 ML VIAL ONE (18:07)
[2020-01-07] MEDS ORDERED: HYDROmorphone HCl 2 MG/ML VIAL IVPB PRN (21:25)
--- NOTE | 2020-01-07 21:40 | PN ---
Progress Note (short form) - Note Progress Note: 49M s/p RIGHT femur osteotomy, tumor curettage/biopsy, bone graft, plate fixation POD #3 now s/p I&D & evacuation of hematoma RIGHT thigh POD #0. -Pt. transferred from [facility] to [facility] ([facility] today. [facility] -Pain control. -DVT PPx: -Chemical: ASA 81mg PO BID x 6 weeks. -Mechanical: JOCE's, SCD's. -Incentive spirometry q15 min. -PT/OT/Rehab, OOB. -TTBW RLE. -f/u OR pathology & bacteriology reports. -f/u post-op TOV: 8 hours max. -f/u AM labs. -Diet as tolerated. -Care per medical hospitalist team. -Discharge planning: f/u [facility] [place] [facility] 7-10 days after discharge; call for appointment . -Will follow. Fabien Durbin MD (Orthopaedic Surgery).
--- NOTE | 2020-01-07 21:51 | OP ---
Operative Note - Note: Operative Date: 01/07/20 Pre-Operative Diagnosis: Retained hematoma right thigh Operation: 1. I&D right thigh. 2. Evacuation hematoma. 3. Cauterization bleeding profunda femoral artery Post-Operative Diagnosis: Same as Pre-op Surgeon: Fabien Durbin Anesthesiologist/SOFTWARE ENGINEER DEVELOPER: Sly Ram Anesthesia: General Specimens Removed: Retained hematoma Drains & Tubes with Location: HemoVac drain Fluid Volume Replaced (mls): 750 (Crystalloid) Operative Report Dictated: Yes
[2020-01-07] MEDS ORDERED: MAGNESIUM HYDROX 2400MG/30ML ORAL SUSPENSION 30 ML CUP PO PRN (22:59)
[2020-01-07] MEDS ORDERED: CEFAZOLIN 2 GM/D5W 2 GM/50 ML ML IVPB SCH (23:00)
[2020-01-07] MEDS: ACETAMINOPHEN 500 MG TABLET (FP) PO SCH (23:18)
[2020-01-08] MEDS: SENNOSIDES/DOCUSATE COMBO (SENNA PLUS) TABLET (UD) PO SCH ×3 (00:15→21:29)
[2020-01-08] MEDS: ALBUTEROL SO4 HFA INHALER IH SCH ×3 (00:15→21:30)
[2020-01-08] MEDS: ASPIRIN COATED 81 MG TABLET.EC PO SCH ×3 (00:15→21:29)
[2020-01-08] MEDS: CEFAZOLIN 2 GM/D5W 2 GM/50 ML ML IVPB SCH ×4 (00:21→17:14)
[2020-01-08] MEDS ORDERED: KETOROLAC TROMETHAMINE 30 MG/1 ML VIAL IVPUSH PRN (02:00)
[2020-01-08] MEDS: oxyCODONE HCL 5 MG TABLET PO PRN ×3 (02:00→17:11)
[2020-01-08] MEDS: ACETAMINOPHEN 500 MG TABLET (FP) PO SCH ×3 (06:30→21:29)
[2020-01-08] MEDS: amLODIPine BESYLATE 5 MG TABLET (FP) PO SCH (09:15)
[2020-01-08] MEDS: PANTOPRAZOLE 40 MG TABLET PO SCH (09:15)
[2020-01-08] MEDS: VALSARTAN 160 MG TABLET PO SCH (09:21)
--- NOTE | 2020-01-08 09:39 | OP ---
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 (Today is Thursday.) OPERATION PERFORMED: 1. Incision, drainage, washout of hematoma right thigh. ([id number]) 2. Diathermization of bleeding circumflex artery. 3. Primary wound closure. OPERATION DETAILS: Patient correctly identified, transferred from [facility] to the [facility] because of an expanding thigh on the right. No neurovascular compromise and no sign or symptoms related to venous thrombosis at this point. Patient brought in the operating room. His general clinical condition was stable. No signs of hemodynamic compromise. Patient awake, fully orientated. Urine output normal. Patient under general anesthesia was placed in the lateral decubitus position right side up. One g of tranexamic acid given. Three g of Ancef given. The right lower extremity was prepped with routine Betadine scrub solution, wiped with alcohol, DuraPrep applied. All gissel were removed. All subcutaneous and fascial sutures removed. The wound was opened and approximately 200 to 250 mL of blood clot was removed and 1 circumflex artery readily noted pulsating into the wound. This was diathermized. The wounds were thoroughly lavaged. Small bleeders were diathermized with bipolar Bovie. By the time this had been performed the tissues were bone dry. A large 19-Nepali Hemovac drain was placed in the subfascial plane. The wound was closed in 3 layers, fascia with No. 1 Vicryl, subcutaneous 1 and 2-0 Vicryl, skin gissel. A light dressing applied. No compressive or circular dressing applied. Plan for continued antibiotics for 24 hours, mobilization within his range of comfort, and go ahead with retention of the drain until drainage is less than 50 mL per 24 hours. I will remove the drain and he will be discharged to go home at that point. We await the histopathology from the tumor resection of the femur. MD ROSS Aguilar/[id number] MTDD
[2020-01-08 10:26] LABS: HEMATOCRIT 28.3 % (35.4-49); HEMOGLOBIN 9.3 GM/dL (11.7-16.9); MCH 27.9 pg (25.7-33.7); MCHC 32.9 g/dl (32.0-35.9); MEAN CELL VOLUME 84.9 fl (80-96); MEAN PLT VOLUME 8.2 fl (7.5-11.1); PLATELET COUNT 277 K/MM3 (134-434); RBC 3.33 M/mm3 (4.00-5.60); WHITE BLOOD COUNT 12.2 K/mm3 (4.0-10.0)
[2020-01-08 10:51] LABS: CREATININE 0.9 mg/dL (0.55-1.3)
[2020-01-08 11:06] LABS: BLOOD UREA NITROGEN 18.2 mg/dL (7-18); CALCIUM 8.3 mg/dL (8.5-10.1); MAGNESIUM 2.5 mg/dL (1.8-2.4)
--- NOTE | 2020-01-08 12:34 | PN ---
Progress Note (short form) - Note Progress Note: Subjective: no fever or chills, no SOB or CP . has pain in his R thigh . No N/V. constipated bumbness in R toes is better than yesterday. He feels his thigh is softer and smaller in size compared to yesterday Objective: Vital Signs: Last Vital Signs Temp Pulse Resp BP Pulse Ox 98.6 F 79 18 146/76 100 01/08/20 10:00 01/08/20 10:00 01/08/20 10:00 01/08/20 10:00 01/08/20 10:00 Laboratory Results - last 24 hr 01/07/20 01/07/20 01/08/20 09:15 14:54 09:50 WBC 12.2 H RBC 3.33 L Hgb 9.3 L Hct 28.3 L MCV 84.9 MCH 27.9 MCHC 32.9 RDW 14.0 Plt Count 277 MPV 8.2 PT with INR 14.40 H INR 1.22 H Sodium Potassium Chloride Carbon Dioxide Anion Gap BUN Creatinine Est GFR (CKD-EPI)AfAm Est GFR (CKD-EPI)NonAf Random Glucose Calcium Phosphorus Magnesium Blood Type O POSITIVE Antibody Screen Negative 01/08/20 09:50 WBC RBC Hgb Hct MCV MCH MCHC RDW Plt Count MPV PT with INR INR Sodium 137 Potassium 4.0 Chloride 100 Carbon Dioxide 28 Anion Gap 8 BUN 18.2 H Creatinine 0.9 Est GFR (CKD-EPI)AfAm 115.02 Est GFR (CKD-EPI)NonAf 99.24 Random Glucose 221 H Calcium 8.3 L Phosphorus 3.0 Magnesium 2.5 H Blood Type Antibody Screen Physical Exam: NAD, awake, alert, pleasant and cooperative. MMM CV: RRR, 2/6 MS at LUSB. Lungs: CTAB ABd: obese, soft, NT Ext: LLE with no edema or erythema . nl sensatio to the L foot. DP 2+ RLE with thigh circumference > L . tenderness on the thigh . R thigh is soft, but harder than L . a clean dressing on lateral side. DP 2+ , decreased sensation to the toes, nl movement of the ankle ( dorsiflexion /plantar flexion ) . a bloody drainage in [facility] Imaging: imaging reviewed. Assessment/Plan: Unfortunate 49 y/o gentleman with h/o HTN, and a recently diagnoses distal femur tumor who presented to [facility] for resectio of tumor/Bx, and was transferred to [facility] due to R thigh hematoma which was evacuated 1- S/p R distal femur enchondroma resectio/Bx 2- S/p evacuation of R thigh hematoma 3- H/o HTN. 4- constipation Plan; - dc toradol - cont dilaudid - increase frequency of oxycodone - add miralax, cont senna - cont HTN meds : valsartan, HCTZ, and noravsc. - cont asa and monitor closely . - prophylactic Abx per surgical team. - mild leukocytosis is likely stress reaction to sx - Monitor neuro vascular exam of the TORYE d/w RN. Visit type - Emergency Visit Emergency Visit: Yes ED Registration Date: 01/05/20 Care time: The patient presented to the Emergency Department on the above date and was hospitalized for further evaluation of their emergent condition. - New Patient This patient is new to me today: Yes Date on this admission: 01/08/20 - Critical Care Critical Care patient: No
--- NOTE | 2020-01-08 13:31 | PN ---
Progress Note (short form) - Note Progress Note: 49M s/p RIGHT femur osteotomy, tumor curettage/biopsy, bone graft, plate fixation POD #3 now s/p I&D & evacuation of hematoma RIGHT thigh POD #0. -Pt. transferred from [facility] to [facility] ([facility]) for I an d thigh -[facility] -Pain control. -DVT PPx: -Chemical: ASA 81mg PO BID x 6 weeks. -Mechanical: JOCE's, SCD's. -Incentive spirometry q15 min. -PT/OT/Rehab, OOB. Mobilize FWBAT -TTBW RLE. -f/u OR pathology & bacteriology reports. -f/u post-op TOV: 8 hours max. -f/u AM labs. -Diet as tolerated. -Care per medical hospitalist team. -Discharge planning: f/u [facility] [place] [facility] 7-10 days after discharge; call for appointment . -Will follow. Fabien Durbin MD (Orthopaedic Surgery).
[2020-01-08] MEDS: INSULIN SLIDING SCALE (NOVOLOG) 1 VIAL SQ SCH (17:15)
[2020-01-08] MEDS ORDERED: INSULIN (NOVOLOG) ASPART 100 UNITS/ML 10ML VIAL ONE (17:53)
[2020-01-08] MEDS ORDERED: HYDROmorphone HCl 2 MG/ML VIAL IVPB PRN (20:02)
--- NOTE | 2020-01-08 20:04 | PN ---
Progress Note, Physician Chief Complaint: s/p exploration of knee wound, and drainage History of Present Illness: post op day one - Current Medication List Current Medications: Active Medications Acetaminophen (Tylenol -) 1,000 mg PO Q8H [facility] Last Admin: 01/08/20 14:44 Dose: 1,000 mg Documented by: Albuterol Sulfate (Ventolin Hfa Inhaler -) 2 puff IH BID [facility] Last Admin: 01/08/20 09:24 Dose: Not Given Documented by: Amlodipine Besylate (Norvasc -) 5 mg PO DAILY [facility] Last Admin: 01/08/20 09:15 Dose: 5 mg Documented by: Aspirin (Ecotrin -) 81 mg PO BID [facility] Last Admin: 01/08/20 09:15 Dose: 81 mg Documented by: Fluticasone Propionate (Flonase -) 1 spray NS BID PRN PRN Reason: NASAL CONGESTION Hydromorphone HCl (Dilaudid Vial -) 2 mg IVPB Q4H-IV PRN PRN Reason: PAIN LEVEL 6-10 Cefazolin Sodium/Dextrose (Ancef 2 Gm Premixed Ivpb -) 2 gm in 50 mls @ 100 mls/hr IVPB Q6H [facility] Stop: 01/08/20 22:59 Last Admin: 01/08/20 17:14 Dose: 100 mls/hr Documented by: Insulin Aspart (Novolog Vial Sliding Scale -) [facility] Protocol Last Admin: 01/08/20 17:15 Dose: Not Given Documented by: Magnesium Hydroxide (Milk Of Magnesia -) 30 ml PO PRN PRN PRN Reason: CONSTIPATION Ondansetron HCl (Zofran Injection) 4 mg IVPUSH Q6H PRN PRN Reason: NAUSEA AND/OR VOMITING Oxycodone HCl (Roxicodone -) 10 mg PO Q4H PRN PRN Reason: PAIN LEVEL 6-10 Last Admin: 01/08/20 17:11 Dose: 10 mg Documented by: Pantoprazole Sodium (Protonix -) 40 mg PO DAILY [facility] Last Admin: 01/08/20 09:15 Dose: 40 mg Documented by: Polyethylene Glycol (Miralax (For Daily Use) -) 17 gm PO DAILY [facility] Senna/Docusate Sodium (Pericolace -) 2 tablet PO BID [facility] Last Admin: 10/04/20 09:21 Dose: 2 tablet Documented by: Valsartan (Diovan -) 160 mg PO DAILY [facility] Last Admin: 01/08/20 09:21 Dose: 160 mg Documented by: - Objective Vital Signs: Vital Signs Temperature 97.6 F 01/08/20 14:00 Pulse Rate 70 01/08/20 14:00 Respiratory Rate 18 01/08/20 14:00 Blood Pressure 122/60 01/08/20 14:00 O2 Sat by Pulse Oximetry (%) 98 01/08/20 14:00 Constitutional: Yes: Well Nourished Respiratory: Yes: WNL Gastrointestinal: Yes: WNL Labs: CBC, BMP 01/08/20 09:50 01/08/20 09:50 INR, PTT INR 1.22 (0.83-1.09) H 01/07/20 14:54 Assessment/Plan Patient doing well, pain controlled today until recently, currently at 7/10 pain despite having oxycodone within the last two hours. Ordered for hydromorphone ivpb but hasnt received it, advised to ask for breakthrough pain. No anesthetic complications. dept of anesthesiology will sign off care at this time
[2020-01-09] MEDS: ACETAMINOPHEN 500 MG TABLET (FP) PO SCH ×2 (05:09→16:36)
[2020-01-09] MEDS: INSULIN SLIDING SCALE (NOVOLOG) 1 VIAL SQ SCH ×2 (06:31→17:53)
[2020-01-09 08:52] LABS: HEMATOCRIT 26.3 % (35.4-49); MCH 28.9 pg (25.7-33.7); MCHC 34.1 g/dl (32.0-35.9); MEAN CELL VOLUME 84.8 fl (80-96); PLATELET COUNT 306 K/MM3 (134-434); RBC 3.11 M/mm3 (4.00-5.60); RDW 14.1 % (11.9-15.9); WHITE BLOOD COUNT 8.8 K/mm3 (4.0-10.0)
[2020-01-09] MEDS: amLODIPine BESYLATE 5 MG TABLET (FP) PO SCH (10:13)
[2020-01-09] MEDS: PANTOPRAZOLE 40 MG TABLET PO SCH (10:13)
[2020-01-09] MEDS: ASPIRIN COATED 81 MG TABLET.EC PO SCH ×2 (10:13→22:32)
[2020-01-09] MEDS: oxyCODONE HCL 5 MG TABLET PO PRN ×3 (10:14→22:32)
--- NOTE | 2020-01-09 10:14 | PN ---
Progress Note, Physician History of Present Illness: Denies recurrent near or true syncope, pain adequately controlled, feels tired. - Current Medication List Current Medications: Active Medications Acetaminophen (Tylenol -) 1,000 mg PO Q8H [facility] Last Admin: 01/09/20 05:09 Dose: 1,000 mg Documented by: Albuterol Sulfate (Ventolin Hfa Inhaler -) 2 puff IH BID [facility] Last Admin: 01/08/20 21:30 Dose: 2 puff Documented by: Amlodipine Besylate (Norvasc -) 5 mg PO DAILY [facility] Last Admin: 01/08/20 09:15 Dose: 5 mg Documented by: Aspirin (Ecotrin -) 81 mg PO BID [facility] Last Admin: 01/08/20 21:29 Dose: 81 mg Documented by: Fluticasone Propionate (Flonase -) 1 spray NS BID PRN PRN Reason: NASAL CONGESTION Hydromorphone HCl (Dilaudid Vial -) 2 mg IVPB Q4H PRN PRN Reason: PAIN LEVEL 6-10 Last Admin: 01/08/20 20:14 Dose: 2 mg Documented by: Insulin Aspart (Novolog Vial Sliding Scale -) [facility] Last Admin: 01/09/20 06:31 Dose: Not Given Documented by: Magnesium Hydroxide (Milk Of Magnesia -) 30 ml PO PRN PRN PRN Reason: CONSTIPATION Ondansetron HCl (Zofran Injection) 4 mg IVPUSH Q6H PRN PRN Reason: NAUSEA AND/OR VOMITING Oxycodone HCl (Roxicodone -) 10 mg PO Q4H PRN PRN Reason: PAIN LEVEL 6-10 Last Admin: 01/08/20 17:11 Dose: 10 mg Documented by: Pantoprazole Sodium (Protonix -) 40 mg PO DAILY [facility] Last Admin: 01/08/20 09:15 Dose: 40 mg Documented by: Polyethylene Glycol (Miralax (For Daily Use) -) 17 gm PO DAILY [facility] Senna/Docusate Sodium (Pericolace -) 2 tablet PO BID [facility] Last Admin: 01/08/20 21:29 Dose: 2 tablet Documented by: Valsartan (Diovan -) 160 mg PO DAILY [facility] Last Admin: 01/08/20 09:21 Dose: 160 mg Documented by: - Objective Vital Signs: Vital Signs Temperature 98.4 F 01/09/20 05:59 Pulse Rate 68 01/09/20 05:59 Respiratory Rate 20 01/09/20 05:59 Blood Pressure 151/71 01/09/20 05:59 O2 Sat by Pulse Oximetry (%) 94 L 01/09/20 05:59 Constitutional: Yes: No Distress, Calm Neck: Yes: Supple Cardiovascular: Yes: Regular Rate and Rhythm Respiratory: Yes: Regular, CTA Bilaterally Gastrointestinal: Yes: Normal Bowel Sounds, Soft Extremities: Yes: Other (Hemovac drain in place) Edema: No Wound/Incision: Yes: Dressing Dry and Intact Labs: CBC, BMP 01/09/20 08:15 01/08/20 09:50 INR, PTT INR 1.22 (0.83-1.09) H 01/07/20 14:54 Problem List - Problems (1) Syncope Code(s): R55 - SYNCOPE AND COLLAPSE Qualifiers: Qualified Code(s): R55 - Syncope and collapse (2) Hypertension Code(s): I10 - ESSENTIAL (PRIMARY) HYPERTENSION Qualifiers: Qualified Code(s): I10 - Essential (primary) hypertension Assessment/Plan 1. Syncope likely vasovagal etiology 2. s/p RIGHT femur osteotomy, tumor curettage/biopsy, bone graft, plate fixation, subsequent I&D right thigh, evacuation of hematoma and cauterization bleeding profunda femoral artery 3. HTN PLAN: 1. Post operative management per surgical team 2. Continue Norvasc 5 mg QD and Diovan 160 mg QD as hemodynamics tolerate 3. Monitor hemovac output 4. Troponin negative 5. PT as tolerated, analgesia as needed and DVT prophylaxis
[2020-01-09] MEDS: SENNOSIDES/DOCUSATE COMBO (SENNA PLUS) TABLET (UD) PO SCH ×2 (10:18→22:32)
[2020-01-09] MEDS: VALSARTAN 160 MG TABLET PO SCH (10:18)
[2020-01-09] MEDS: ALBUTEROL SO4 HFA INHALER IH SCH ×2 (10:19→22:33)
--- NOTE | 2020-01-09 10:39 | PN ---
Progress Note (short form) - Note Progress Note: 49yo M s/p Rt femoral osteotomy for osteosarcoma and subsequent washout. Pt seen and examined at bedside. Pt complaining of knee pain. Pt has not been OOB yet. Denies dizziness or recent syncopal episode. Last Vital Signs Temp Pulse Resp BP Pulse Ox 98.4 F 68 20 151/71 94 L 01/09/20 05:59 01/09/20 05:59 01/09/20 05:59 01/09/20 05:59 01/09/20 05:59 CBC, BMP 01/09/20 08:15 01/08/20 09:50 PE Gen: A&O X3 Resp: breathing comfortably RLE: dressing in place, drain with serosanguinous drainage. No numbness or weakness. +2 pedal pulses. Problem List - Problems (1) Syncope Assessment/Plan: Plan -follow drainage -oob/ambulate -trend H/H Code(s): R55 - SYNCOPE AND COLLAPSE Qualifiers: Syncope type: vasovagal syncope Qualified Code(s): R55 - Syncope and collapse
[2020-01-09] MEDS: POLYETHYLENE GLYCOL 3350 119 GM BTL PO SCH (11:43)
[2020-01-09] MEDS ORDERED: PT OWN MED DRAWER 7, Y5N ONE (12:28)
--- NOTE | 2020-01-09 15:46 | PN ---
Teaching Attending Note Name of Resident: Horacio Canchola ATTENDING PHYSICIAN STATEMENT I saw and examined patient I reviewed the resident's note and discussed the case with the resident. I agree with the resident's findings and plan as documented. Subjective : walked twice in hallway no BM, pain is controlled with meds Obj: VS reviewed. CV: RRR Lungs: CTAB RLE with a lng dressing on lateral side, with posterior bruising. bloody drainage in bag. tender thigh , soft but harder than L . decreased sensation to light touch to the leg and foot. Dp 2+ LLE with no edema or erythema . nl sensation ASSESSMENT AND PLAN: Unfortunate 49 y/o gentleman with h/o HTN, and a recently diagnoses distal femur tumor who presented to [facility] for resection of tumor/Bx, and was transferred to [facility] due to R thigh hematoma which was evacuated 1- S/p R distal femur enchondroma resection/Bx 2- S/p evacuation of R thigh hematoma 3- H/o HTN. 4- constipation 5- hyperglycemia Plan; - cont dilaudid and oxy - cont bowel regimen - cont HTN meds: valsartan, HCTZ, and noravsc. - cont asa and monitor closely. - leukocytosis resolved - A1c 5.4. sugar is normal now. dc SSI
--- NOTE | 2020-01-09 15:50 | PN ---
Physical Exam: SUBJECTIVE: Patient seen and examined at bedside, c/o mild pain around the surgical site. No acute events overnight, no fevers, chills, nausea, vomiting, dysuria OBJECTIVE: Vital Signs Period Temp Pulse Resp BP Sys/Clark Pulse Ox Last 24 Hr 98.4 F-99.0 F 64-68 20-20 136-151/71-72 94-98 GENERAL: The patient is awake, alert, and fully oriented, in no acute distress. HEAD: Normal with no signs of trauma. EYES: PERRL, extraocular movements intact, sclera anicteric, conjunctiva clear. ENT: Ears normal, nares patent, oropharynx clear without exudates, moist mucous membranes. NECK: Trachea midline, full range of motion, supple. LUNGS: Breath sounds equal, clear to auscultation bilaterally, no wheezes, no crackles, no accessory muscle use. HEART: Regular rate and rhythm, S1, S2 without murmur, rub or gallop. ABDOMEN: obese, Soft, nontender, nondistended, normoactive bowel sounds, no guarding, no rebound, EXTREMITIES: 2+ pulses, warm, well-perfused, no edema. TTP of R thigh, intact dressing, clean, VICTOR HUGO drain in place NEUROLOGICAL: Cranial nerves II through XII grossly intact. Normal speech, gait not observed. Intact motor and sensory functions b/l LE PSYCH: Normal mood, normal affect. SKIN: Warm, dry, normal turgor, no rashes or lesions noted Laboratory Results - last 24 hr 01/08/20 01/09/20 01/09/20 17:10 06:30 08:15 WBC 8.8 RBC 3.11 L Hgb 9.0 L Hct 26.3 L MCV 84.8 MCH 28.9 MCHC 34.1 RDW 14.1 Plt Count 306 MPV 8.0 POC Glucometer 126 93 Hemoglobin A1c % 01/09/20 08:33 WBC RBC Hgb Hct MCV MCH MCHC RDW Plt Count MPV POC Glucometer Hemoglobin A1c % 5.4 Active Medications Generic Name Dose Route Start Last Admin Trade Name Freq PRN Reason Stop Dose Admin Acetaminophen 1,000 mg 01/07/20 21:30 01/09/20 05:09 Tylenol - PO 1,000 mg Q8H [facility] Administration Albuterol Sulfate 2 puff 01/08/20 10:00 01/09/20 10:19 Ventolin Hfa Inhaler - IH 2 puff BID [facility] Administration Amlodipine Besylate 5 mg 01/08/20 10:00 01/09/20 10:13 Norvasc - PO 5 mg DAILY [facility] Administration Aspirin 81 mg 01/08/20 10:00 01/09/20 10:13 Ecotrin - PO 81 mg BID [facility] Administration Fluticasone Propionate 1 spray 01/07/20 22:59 Flonase - NS BID PRN NASAL CONGESTION Hydromorphone HCl 2 mg 01/08/20 20:02 01/08/20 20:14 Dilaudid Vial - IVPB 2 mg Q4H PRN Administration PAIN LEVEL 6-10 Insulin Aspart 1 vial 01/08/20 16:30 01/09/20 06:31 Novolog Vial Sliding Scale - SQ Not Given [facility] Protocol Magnesium Hydroxide 30 ml 01/07/20 22:59 Milk Of Magnesia - PO PRN PRN CONSTIPATION Ondansetron HCl 4 mg 01/07/20 22:59 Zofran Injection IVPUSH Q6H PRN NAUSEA AND/OR VOMITING Oxycodone HCl 10 mg 01/08/20 12:44 01/09/20 10:14 Roxicodone - PO 10 mg Q4H PRN Administration PAIN LEVEL 6-10 Pantoprazole Sodium 40 mg 01/08/20 10:00 01/09/20 10:13 Protonix - PO 40 mg DAILY [facility] Administration Polyethylene Glycol 17 gm 01/09/20 10:00 01/09/20 11:43 Miralax (For Daily Use) - PO 17 gm DAILY [facility] Administration Senna/Docusate Sodium 2 tablet 01/08/20 10:00 01/09/20 10:18 Pericolace - PO 2 tablet BID [facility] Administration Valsartan 160 mg 01/08/20 10:00 01/09/20 10:18 Diovan - PO 160 mg DAILY [facility] Administration ASSESSMENT/PLAN: 49 Y M with a PMH of HTN, and a recent diagnosis of distal femoral tumor presented from [place] s/p RIGHT femur osteotomy, tumor curettage/biopsy, bone graft, plate fixation (on 01/04/[address] Fabien Durbin.) complicated by hematoma, admitted for I&D & evacuation of hematoma #Right femur enchondroma/osteosarcoma - Pending pathology report - s/p RIGHT femur osteotomy, tumor curettage/biopsy, bone graft, plate fixation POD#4 w/ - s/p I&D & evacuation of hematoma RIGHT thigh POD #1 w/Dr. Durbin - Pain management: per surgery/Anesthesia Added bowel regimen ASA 81mg BID prophylactic Abx per surgical team #HTN - Continue with home medications: - Holding HCTZ, due to a syncopal episode, Low BP - Valsartan 160mg QD - Norvasc 5mg QD DVT PPX - ASA 81mg PO BID x 6 weeks - SCD's FEN - No standing fluids - Will continue to monitor electrolytes - Regular Diet Dispo - Will continue to monitor in [place] Visit type - Emergency Visit Emergency Visit: Yes ED Registration Date: 01/05/20 Care time: The patient presented to the Emergency Department on the above date and was hospitalized for further evaluation of their emergent condition. - New Patient This patient is new to me today: No - Critical Care Critical Care patient: No - Discharge Referral Referred to [facility] Med [facility].C[facility] No ATTENDING PHYSICIAN STATEMENT I saw and evaluated the patient. I reviewed the resident's note and discussed the case with the resident. I agree with the resident's findings and plan as documented. SUBJECTIVE: OBJECTIVE: ASSESSMENT AND PLAN:
[2020-01-10] MEDS: ACETAMINOPHEN 500 MG TABLET (FP) PO SCH ×4 (00:26→21:41)
[2020-01-10] MEDS: oxyCODONE HCL 5 MG TABLET PO PRN ×3 (08:35→21:43)
[2020-01-10] MEDS: AMINO ACIDS/PROTEIN HYDROLYS 30 ML LIQUID.PKT PO SCH (08:35)
[2020-01-10 09:10] LABS: BASO % 0.8 % (0-2.0); EOS % 4.6 % (0-4.5); HEMATOCRIT 27.8 % (35.4-49); HEMOGLOBIN 9.3 GM/dL (11.7-16.9); LYMPH % 15.3 % (8-40); MCH 28.3 pg (25.7-33.7); MCHC 33.7 g/dl (32.0-35.9); MEAN PLT VOLUME 7.2 fl (7.5-11.1); NEUT % 71.3 % (42.8-82.8); PLATELET COUNT 354 K/MM3 (134-434); RDW 13.9 % (11.9-15.9); WHITE BLOOD COUNT 8.9 K/mm3 (4.0-10.0)
[2020-01-10 09:37] LABS: ALBUMIN 2.8 g/dl (3.4-5.0); BILIRUBIN,TOTAL 0.6 mg/dL (0.2-1); BLOOD UREA NITROGEN 15.7 mg/dL (7-18); CALCIUM 8.1 mg/dL (8.5-10.1); CREATININE 0.6 mg/dL (0.55-1.3); MAGNESIUM 2.2 mg/dL (1.8-2.4); PHOSPHOROUS 3.8 mg/dL (2.5-4.9); POTASSIUM 4.2 mmol/L (3.5-5.1)
[2020-01-10] MEDS ORDERED: PT OWN MED DRAWER 7, Y5N ONE (09:39)
[2020-01-10] MEDS: VALSARTAN 160 MG TABLET PO SCH (09:41)
[2020-01-10] MEDS: ASPIRIN COATED 81 MG TABLET.EC PO SCH ×2 (09:41→21:42)
[2020-01-10] MEDS: POLYETHYLENE GLYCOL 3350 119 GM BTL PO SCH (09:41)
[2020-01-10] MEDS: PANTOPRAZOLE 40 MG TABLET PO SCH (09:42)
[2020-01-10] MEDS: amLODIPine BESYLATE 5 MG TABLET (FP) PO SCH (09:42)
[2020-01-10] MEDS: SENNOSIDES/DOCUSATE COMBO (SENNA PLUS) TABLET (UD) PO SCH ×2 (09:42→21:43)
[2020-01-10] MEDS: MULTIVITAMINS (DAILY MVI) TABLET (FP) PO SCH (09:43)
[2020-01-10] MEDS: ASCORBIC ACID 250 MG TABLET (FP) PO SCH (09:43)
[2020-01-10] MEDS: ALBUTEROL SO4 HFA INHALER IH SCH ×2 (09:43→21:44)
--- NOTE | 2020-01-10 09:47 | PN ---
Progress Note (short form) - Note Progress Note: Surgery: Pt states that he is having some pain today, just took oral pain medications. Vital Signs Period Temp Pulse Resp BP Sys/Clark Pulse Ox Last 24 Hr 97.8 F-99 F 75-81 18-20 121-143/59-80 96-98 VICTOR HUGO: 40 ml serosangrenous GEN: A&0x3 Right knee: dressing c/d/i. Victor Hugo removed with the tip intact. Pressure dressing applied. CBC, BMP 01/10/20 08:45 01/10/20 06:00 A/p: 49 Yo male s/p right femur osteotomy with intramedullary resection/plate fixation 01/03 and post op evacuation of hemtoma Drain removed today, dressing remains intact and dry Continue ambulation with walker/PT case management for discharge planning. D/w Dr. Durbin
--- NOTE | 2020-01-10 10:01 | PN ---
Teaching Attending Note Name of Resident: Alina Veras ATTENDING PHYSICIAN STATEMENT I saw and evaluated the patient. I reviewed the resident's note and discussed the case with the resident. I agree with the resident's findings and plan as documented. This patient is new to me today on 01/10/[address] Durbin who operated on the patient SUBJECTIVE: Patient is c/o having left thigh pain. OBJECTIVE: Vital Signs Temperature 99 F 01/10/20 06:00 Pulse Rate 78 01/10/20 06:00 Respiratory Rate 20 01/10/20 06:00 Blood Pressure 143/73 01/10/20 06:00 O2 Sat by Pulse Oximetry (%) 96 01/10/20 06:00 PE;per resident's note able to move his extremities CBCD WBC 8.9 K/mm3 (4.0-10.0) 01/10/20 08:45 RBC 3.30 M/mm3 (4.00-5.60) L 01/10/20 08:45 Hgb 9.3 GM/dL (11.7-16.9) L 01/10/20 08:45 Hct 27.8 % (35.4-49) L 01/10/20 08:45 MCV 84.0 fl (80-96) 01/10/20 08:45 MCHC 33.7 g/dl (32.0-35.9) 01/10/20 08:45 RDW 13.9 % (11.9-15.9) 01/10/20 08:45 Plt Count 354 K/MM3 (134-434) 01/10/20 08:45 MPV 7.2 fl (7.5-11.1) L 01/10/20 08:45 CMP Sodium 139 mmol/L (136-145) 01/10/20 06:00 Potassium 4.2 mmol/L (3.5-5.1) 01/10/20 06:00 Chloride 104 mmol/L (98-107) 01/10/20 06:00 Carbon Dioxide 33 mmol/L (21-32) H 01/10/20 06:00 Anion Gap 2 MMOL/L (8-16) L 01/10/20 06:00 BUN 15.7 mg/dL (7-18) 01/10/20 06:00 Creatinine 0.6 mg/dL (0.55-1.3) 01/10/20 06:00 Random Glucose 89 mg/dL (74-106) 01/10/20 06:00 Calcium 8.1 mg/dL (8.5-10.1) L 01/10/20 06:00 Total Bilirubin 0.6 mg/dL (0.2-1) 01/10/20 06:00 AST 39 U/L (15-37) H 01/10/20 06:00 ALT 49 U/L (13-61) 01/10/20 06:00 Alkaline Phosphatase 84 U/L (45-117) 01/10/20 06:00 Total Protein 6.0 g/dl (6.4-8.2) L 01/10/20 06:00 Albumin 2.8 g/dl (3.4-5.0) L 01/10/20 06:00 CARDIAC ENZYMES Troponin I 0.05 ng/ml (0.00-0.05) 01/06/20 18:00 Current Medications Generic Name Dose Route Start Last Admin Trade Name Nikita PRN Reason Stop Dose Admin Acetaminophen 1,000 mg 01/07/20 21:30 01/10/20 09:51 Tylenol - PO 1,000 mg Q8H [facility] Administration Albuterol Sulfate 2 puff 01/08/20 10:00 01/10/20 09:43 Ventolin Hfa Inhaler - IH 2 puff BID [facility] Administration Amino Acids 30 ml 01/10/20 08:30 01/10/20 08:35 Prosource No Carb Liquid Pkt PO 30 ml DAILY@0830 [facility] Administration Amlodipine Besylate 5 mg 01/08/20 10:00 01/10/20 09:42 Norvasc - PO 5 mg DAILY [facility] Administration Ascorbic Acid 250 mg 01/10/20 10:00 01/10/20 09:43 Vitamin C - PO 250 mg DAILY [facility] Administration Aspirin 81 mg 01/08/20 10:00 01/10/20 09:41 Ecotrin - PO 81 mg BID [facility] Administration Fluticasone Propionate 1 spray 01/07/20 22:59 Flonase - NS BID PRN NASAL CONGESTION Hydromorphone HCl 2 mg 01/08/20 20:02 01/08/20 20:14 Dilaudid Vial - IVPB 2 mg Q4H PRN Administration PAIN LEVEL 6-10 Magnesium Hydroxide 30 ml 01/07/20 22:59 Milk Of Magnesia - PO PRN PRN CONSTIPATION Multivitamins/Minerals/Vitamin C 1 tab 01/10/20 10:00 01/10/20 09:43 Tab-A-Vit - PO 1 tab DAILY [facility] Administration Ondansetron HCl 4 mg 01/07/20 22:59 Zofran Injection IVPUSH Q6H PRN NAUSEA AND/OR VOMITING Oxycodone HCl 10 mg 01/08/20 12:44 01/10/20 08:35 Roxicodone - PO 10 mg Q4H PRN Administration PAIN LEVEL 6-10 Pantoprazole Sodium 40 mg 01/08/20 10:00 01/10/20 09:42 Protonix - PO 40 mg DAILY [facility] Administration Polyethylene Glycol 17 gm 01/09/20 10:00 01/10/20 09:41 Miralax (For Daily Use) - PO Not Given DAILY [facility] Senna/Docusate Sodium 2 tablet 01/08/20 10:00 01/10/20 09:42 Pericolace - PO 2 tablet BID [facility] Administration Valsartan 160 mg 01/08/20 10:00 01/10/20 09:41 Diovan - PO 160 mg DAILY [facility] Administration Home Medications Medication Instructions Recorded Albuterol Sulfate [Albuterol 8.5 gm IH BID 01/03/20 Sulfate Hfa] Amlodipine Besylate 5 mg PO DAILY 01/03/20 Fluticasone Prop 0.05% Nasal 1 - 2 spray NS BID PRN 01/03/20 [Flonase -] Hydrochlorothiazide [Hctz -] 25 mg PO DAILY 01/03/20 Valsartan [Diovan] 160 mg PO DAILY 01/03/20 ASSESSMENT AND PLAN: This patient is a 49yom with Pmhx of HTN, and a recently diagnoses distal femur tumor who presented to [facility] for resection of tumor/Bx, and was transferred to [facility] due to R thigh hematoma which was evacuated #S/p R distal femur enchondroma resection/Bx by Dr Durbin continue pain meds.as per Dr Durbin # S/p evacuation of R thigh hematoma by Dr Durbin # H/o HTN continue home meds # constipation :bowel regimen continue # hyperglycemia DVt Px: ECASA 81mg po bid x 6weeks as per ortho Dr Durbin
[2020-01-10 10:37] LABS: ANISOCYTOSIS 0; MACROCYTOSIS 0; PLATELET ESTIMATE NORMAL
--- NOTE | 2020-01-10 12:47 | PN ---
Progress Note, Physician Chief Complaint: Events noted Post op right lower extremity Complains of pain in surgical site Drowsy today History of Present Illness: Patient was seen and examined. Awake and alert. Chart was reviewed Denies chest pain, SOB or palpitations ? Pain medication effect - Current Medication List Current Medications: Active Medications Acetaminophen (Tylenol -) 1,000 mg PO Q8H [facility] Last Admin: 01/10/20 09:51 Dose: 1,000 mg Documented by: Albuterol Sulfate (Ventolin Hfa Inhaler -) 2 puff IH BID [facility] Last Admin: 01/10/20 09:43 Dose: 2 puff Documented by: Amino Acids (Prosource No Carb Liquid Pkt) 30 ml PO DAILY@0830 [facility] Last Admin: 01/10/20 08:35 Dose: 30 ml Documented by: Amlodipine Besylate (Norvasc -) 5 mg PO DAILY [facility] Last Admin: 01/10/20 09:42 Dose: 5 mg Documented by: Ascorbic Acid (Vitamin C -) 250 mg PO DAILY [facility] Last Admin: 01/10/20 09:43 Dose: 250 mg Documented by: Aspirin (Ecotrin -) 81 mg PO BID [facility] Last Admin: 01/10/20 09:41 Dose: 81 mg Documented by: Fluticasone Propionate (Flonase -) 1 spray NS BID PRN PRN Reason: NASAL CONGESTION Hydromorphone HCl (Dilaudid Vial -) 2 mg IVPB Q4H PRN PRN Reason: PAIN LEVEL 6-10 Last Admin: 01/08/20 20:14 Dose: 2 mg Documented by: Magnesium Hydroxide (Milk Of Magnesia -) 30 ml PO PRN PRN PRN Reason: CONSTIPATION Multivitamins/Minerals/Vitamin C (Tab-A-Vit -) 1 tab PO DAILY [facility] Last Admin: 01/10/20 09:43 Dose: 1 tab Documented by: Ondansetron HCl (Zofran Injection) 4 mg IVPUSH Q6H PRN PRN Reason: NAUSEA AND/OR VOMITING Oxycodone HCl (Roxicodone -) 10 mg PO Q4H PRN PRN Reason: PAIN LEVEL 6-10 Last Admin: 01/10/20 08:35 Dose: 10 mg Documented by: Pantoprazole Sodium (Protonix -) 40 mg PO DAILY [facility] Last Admin: 01/10/20 09:42 Dose: 40 mg Documented by: Polyethylene Glycol (Miralax (For Daily Use) -) 17 gm PO DAILY [facility] Last Admin: 01/10/20 09:41 Dose: Not Given Documented by: Senna/Docusate Sodium (Pericolace -) 2 tablet PO BID [facility] Last Admin: 01/10/20 09:42 Dose: 2 tablet Documented by: Valsartan (Diovan -) 160 mg PO DAILY [facility] Last Admin: 01/10/20 09:41 Dose: 160 mg Documented by: - Objective Vital Signs: Vital Signs Temperature 99 F 01/10/20 06:00 Pulse Rate 78 01/10/20 06:00 Respiratory Rate 20 01/10/20 06:00 Blood Pressure 143/73 01/10/20 06:00 O2 Sat by Pulse Oximetry (%) 96 01/10/20 06:00 Neck: Yes: Supple Cardiovascular: Yes: Regular Rate and Rhythm, S1, S2 Respiratory: Yes: CTA Bilaterally Gastrointestinal: Yes: Normal Bowel Sounds, Soft. No: Tenderness Extremities: Yes: Other (Post op) Labs: CBC, BMP 01/10/20 08:45 01/10/20 06:00 INR, PTT INR 1.22 (0.83-1.09) H 01/07/20 14:54 Problem List - Problems (1) Hypertension Code(s): I10 - ESSENTIAL (PRIMARY) HYPERTENSION Qualifiers: Hypertension type: essential hypertension Qualified Code(s): I10 - Essential (primary) hypertension (2) Syncope Code(s): R55 - SYNCOPE AND COLLAPSE Qualifiers: Syncope type: vasovagal syncope Qualified Code(s): R55 - Syncope and collapse Assessment/Plan 1. Syncope likely vasovagal 2. Post RIGHT femur osteotomy, tumor curettage/biopsy, bone graft, plate fixation, evacuation of hematoma with cauterization bleeding profunda femoral artery 3. HTN PLAN: 1. Post operative management per surgical team 2. Continue Norvasc 5 mg QD and Diovan 160 mg QD as hemodynamics tolerate 3. Monitor hemovac output 4. Troponin negative 5. PT as tolerated, analgesia as needed and DVT prophylaxis PLAN: 1. Post operative management per surgical team 2. Continue Norvasc 5 mg QD and Diovan 160 mg QD as hemodynamics tolerate 3. PT as tolerated, analgesia as needed and DVT prophylaxis Michael Loco MD
--- NOTE | 2020-01-10 16:30 | PN ---
Physical Exam: SUBJECTIVE: Patient seen and examined at bedside, reports stiffness of the R.Leg, unable to bend the knee, worsening pain this am. Denies any fevers, chills, nausea, vomiting OBJECTIVE: Vital Signs Period Temp Pulse Resp BP Sys/Clark Pulse Ox Last 24 Hr 97.8 F-99 F 77-82 20-20 121-145/59-80 95-98 GENERAL: The patient is awake, alert, and fully oriented, in no acute distress. HEAD: Normal with no signs of trauma. EYES: PERRL, extraocular movements intact, sclera anicteric, conjunctiva clear. ENT: Ears normal, nares patent, oropharynx clear without exudates, moist mucous membranes. NECK: Trachea midline, full range of motion, supple. LUNGS: Breath sounds equal, clear to auscultation bilaterally, no wheezes, no crackles, no accessory muscle use. HEART: Regular rate and rhythm, S1, S2 without murmur, rub or gallop. ABDOMEN: obese, Soft, nontender, nondistended, normoactive bowel sounds, no guarding, no rebound, EXTREMITIES: 2+ pulses, warm, well-perfused, no edema. TTP of R thigh, intact dressing, clean, VICTOR HUGO drain in place NEUROLOGICAL: Cranial nerves II through XII grossly intact. Normal speech, gait not observed. Intact motor and sensory functions b/l LE PSYCH: Normal mood, normal affect. SKIN: Warm, dry, normal turgor, no rashes or lesions noted Laboratory Results - last 24 hr 01/10/20 01/10/20 06:00 08:45 WBC 8.9 RBC 3.30 L Hgb 9.3 L Hct 27.8 L MCV 84.0 MCH 28.3 MCHC 33.7 RDW 13.9 Plt Count 354 MPV 7.2 L Absolute Neuts (auto) 6.3 Neutrophils % 71.3 Neutrophils % (Manual) 71.0 Band Neutrophils % 6.0 Lymphocytes % 15.3 Lymphocytes % (Manual) 13.0 Monocytes % 8.0 Monocytes % (Manual) 5 Eosinophils % 4.6 H Eosinophils % (Manual) 3.0 Basophils % 0.8 Basophils % (Manual) 0.0 Myelocytes % (Man) 2 Promyelocytes % (Man) 0 Blast Cells % (Manual) 0 Nucleated RBC % 0 Metamyelocytes 0 Hypochromia 0 Platelet Estimate Normal Polychromasia 0 Poikilocytosis 0 Anisocytosis 0 Microcytosis 0 Macrocytosis 0 Sodium 139 Potassium 4.2 Chloride 104 Carbon Dioxide 33 H Anion Gap 2 L BUN 15.7 Creatinine 0.6 Est GFR (CKD-EPI)AfAm 135.87 Est GFR (CKD-EPI)NonAf 117.23 Random Glucose 89 Calcium 8.1 L Phosphorus 3.8 Magnesium 2.2 Total Bilirubin 0.6 AST 39 H ALT 49 Alkaline Phosphatase 84 Total Protein 6.0 L Albumin 2.8 L Active Medications Generic Name Dose Route Start Last Admin Trade Name Freq PRN Reason Stop Dose Admin Acetaminophen 1,000 mg 01/07/20 21:30 01/10/20 09:51 Tylenol - PO 1,000 mg Q8H [facility] Administration Albuterol Sulfate 2 puff 01/08/20 10:00 01/10/20 09:43 Ventolin Hfa Inhaler - IH 2 puff BID [facility] Administration Amino Acids 30 ml 01/10/20 08:30 01/10/20 08:35 Prosource No Carb Liquid Pkt PO 30 ml DAILY@0830 [facility] Administration Amlodipine Besylate 5 mg 01/08/20 10:00 01/10/20 09:42 Norvasc - PO 5 mg DAILY [facility] Administration Ascorbic Acid 250 mg 01/10/20 10:00 01/10/20 09:43 Vitamin C - PO 250 mg DAILY [facility] Administration Aspirin 81 mg 01/08/20 10:00 01/10/20 09:41 Ecotrin - PO 81 mg BID [facility] Administration Fluticasone Propionate 1 spray 01/07/20 22:59 Flonase - NS BID PRN NASAL CONGESTION Hydromorphone HCl 2 mg 01/08/20 20:02 01/08/20 20:14 Dilaudid Vial - IVPB 2 mg Q4H PRN Administration PAIN LEVEL 6-10 Magnesium Hydroxide 30 ml 01/07/20 22:59 Milk Of Magnesia - PO PRN PRN CONSTIPATION Multivitamins/Minerals/Vitamin C 1 tab 01/10/20 10:00 01/10/20 09:43 Tab-A-Vit - PO 1 tab DAILY [facility] Administration Ondansetron HCl 4 mg 01/07/20 22:59 Zofran Injection IVPUSH Q6H PRN NAUSEA AND/OR VOMITING Oxycodone HCl 10 mg 01/08/20 12:44 10/06/20 15:19 Roxicodone - PO 10 mg Q4H PRN Administration PAIN LEVEL 6-10 Pantoprazole Sodium 40 mg 01/08/20 10:00 01/10/20 09:42 Protonix - PO 40 mg DAILY [facility] Administration Polyethylene Glycol 17 gm 01/09/20 10:00 01/10/20 09:41 Miralax (For Daily Use) - PO Not Given DAILY [facility] Senna/Docusate Sodium 2 tablet 01/08/20 10:00 01/10/20 09:42 Pericolace - PO 2 tablet BID [facility] Administration Valsartan 160 mg 01/08/20 10:00 01/10/20 09:41 Diovan - PO 160 mg DAILY [facility] Administration ASSESSMENT/PLAN: 49 Y M with a PMH of HTN, and a recent diagnosis of distal femoral tumor presented from [place] s/p RIGHT femur osteotomy, tumor curettage/biopsy, bone graft, plate fixation (on 01/04/[address] Fabien Durbin.) complicated by hematoma, admitted for I&D & evacuation of hematoma #Right femur enchondroma/osteosarcoma - Pending pathology report - s/p RIGHT femur osteotomy, tumor curettage/biopsy, bone graft, plate fixation POD#5 w/ - s/p I&D & evacuation of hematoma RIGHT thigh POD #2 w/Dr. Durbin Pain management: Dilaudid 2gm Q4H PRN and Oxycodone 10mg Q4H PRN Added bowel regimen ASA 81mg BID prophylactic Abx per surgical team - VICTOR HUGO drain removed #HTN - Continue with home medications: - Holding HCTZ, due to a syncopal episode, Low BP - Valsartan 160mg QD - Norvasc 5mg QD DVT PPX - ASA 81mg PO BID x 6 weeks - SCD's FEN - No standing fluids - Will continue to monitor electrolytes - Regular Diet Dispo - Will continue to monitor in [place] Visit type - Emergency Visit Emergency Visit: Yes ED Registration Date: 01/05/20 Care time: The patient presented to the Emergency Department on the above date and was hospitalized for further evaluation of their emergent condition. - New Patient This patient is new to me today: No - Critical Care Critical Care patient: No - Discharge Referral Referred to [facility] Med P.C.: No ATTENDING PHYSICIAN STATEMENT I saw and evaluated the patient. I reviewed the resident's note and discussed the case with the resident. I agree with the resident's findings and plan as documented. SUBJECTIVE: OBJECTIVE: ASSESSMENT AND PLAN:
[2020-01-10] MEDS: FLUTICASONE PROP 0.05% 16 GM NASAL SPRAY NS PRN (21:44)
[2020-01-11] MEDS: oxyCODONE HCL 5 MG TABLET PO PRN ×4 (05:38→21:52)
[2020-01-11] MEDS: ACETAMINOPHEN 500 MG TABLET (FP) PO SCH ×3 (05:39→22:04)
[2020-01-11 08:29] LABS: ALBUMIN 2.8 g/dl (3.4-5.0); BASO % 0.6 % (0-2.0); BILIRUBIN,TOTAL 0.8 mg/dL (0.2-1); BLOOD UREA NITROGEN 14.5 mg/dL (7-18); CALCIUM 8.4 mg/dL (8.5-10.1); CREATININE 0.5 mg/dL (0.55-1.3); EOS % 2.7 % (0-4.5); HEMATOCRIT 28.1 % (35.4-49); HEMOGLOBIN 9.4 GM/dL (11.7-16.9); LYMPH % 10.8 % (8-40); MAGNESIUM 2.2 mg/dL (1.8-2.4); MCH 28.4 pg (25.7-33.7); MCHC 33.6 g/dl (32.0-35.9); MEAN CELL VOLUME 84.3 fl (80-96); MEAN PLT VOLUME 7.3 fl (7.5-11.1); MONO % 5.9 % (3.8-10.2); PHOSPHOROUS 3.9 mg/dL (2.5-4.9); PLATELET COUNT 368 K/MM3 (134-434); POTASSIUM 4.6 mmol/L (3.5-5.1); RBC 3.33 M/mm3 (4.00-5.60); RDW 14.2 % (11.9-15.9); WHITE BLOOD COUNT 10.4 K/mm3 (4.0-10.0)
[2020-01-11] MEDS: MULTIVITAMINS (DAILY MVI) TABLET (FP) PO SCH (09:37)
[2020-01-11] MEDS: POLYETHYLENE GLYCOL 3350 119 GM BTL PO SCH (09:38)
[2020-01-11] MEDS: ASCORBIC ACID 250 MG TABLET (FP) PO SCH (09:38)
[2020-01-11] MEDS: amLODIPine BESYLATE 5 MG TABLET (FP) PO SCH (09:38)
[2020-01-11] MEDS: ASPIRIN COATED 81 MG TABLET.EC PO SCH ×2 (09:38→21:52)
[2020-01-11] MEDS: AMINO ACIDS/PROTEIN HYDROLYS 30 ML LIQUID.PKT PO SCH (09:38)
[2020-01-11] MEDS: PANTOPRAZOLE 40 MG TABLET PO SCH (09:38)
[2020-01-11] MEDS: SENNOSIDES/DOCUSATE COMBO (SENNA PLUS) TABLET (UD) PO SCH ×2 (09:39→21:53)
[2020-01-11] MEDS: VALSARTAN 160 MG TABLET PO SCH (09:39)
[2020-01-11] MEDS: ALBUTEROL SO4 HFA INHALER IH SCH ×2 (09:39→21:57)
--- NOTE | 2020-01-11 11:02 | PN ---
Progress Note, Physician History of Present Illness: Denies recurrent near or true syncope, pain adequately controlled, ambulating. - Current Medication List Current Medications: Active Medications Acetaminophen (Tylenol -) 1,000 mg PO Q8H [facility] Last Admin: 01/11/20 05:39 Dose: 1,000 mg Documented by: Albuterol Sulfate (Ventolin Hfa Inhaler -) 2 puff IH BID [facility] Last Admin: 01/11/20 09:39 Dose: 2 puff Documented by: Amino Acids (Prosource No Carb Liquid Pkt) 30 ml PO DAILY@0830 [facility] Last Admin: 01/11/20 09:38 Dose: 30 ml Documented by: Amlodipine Besylate (Norvasc -) 5 mg PO DAILY [facility] Last Admin: 01/11/20 09:38 Dose: 5 mg Documented by: Ascorbic Acid (Vitamin C -) 250 mg PO DAILY [facility] Last Admin: 01/11/20 09:38 Dose: 250 mg Documented by: Aspirin (Ecotrin -) 81 mg PO BID [facility] Last Admin: 01/11/20 09:38 Dose: 81 mg Documented by: Fluticasone Propionate (Flonase -) 1 spray NS BID PRN PRN Reason: NASAL CONGESTION Last Admin: 01/10/20 21:44 Dose: 1 spray Documented by: Hydromorphone HCl (Dilaudid Vial -) 2 mg IVPB Q4H PRN PRN Reason: PAIN LEVEL 6-10 Last Admin: 01/08/20 20:14 Dose: 2 mg Documented by: Magnesium Hydroxide (Milk Of Magnesia -) 30 ml PO PRN PRN PRN Reason: CONSTIPATION Multivitamins/Minerals/Vitamin C (Tab-A-Vit -) 1 tab PO DAILY [facility] Last Admin: 01/11/20 09:37 Dose: 1 tab Documented by: Ondansetron HCl (Zofran Injection) 4 mg IVPUSH Q6H PRN PRN Reason: NAUSEA AND/OR VOMITING Oxycodone HCl (Roxicodone -) 10 mg PO Q4H PRN PRN Reason: PAIN LEVEL 6-10 Last Admin: 01/11/20 05:38 Dose: 10 mg Documented by: Pantoprazole Sodium (Protonix -) 40 mg PO DAILY [facility] Last Admin: 01/11/20 09:38 Dose: 40 mg Documented by: Polyethylene Glycol (Miralax (For Daily Use) -) 17 gm PO DAILY [facility] Last Admin: 01/11/20 09:38 Dose: 17 gm Documented by: Senna/Docusate Sodium (Pericolace -) 2 tablet PO BID [facility] Last Admin: 01/11/20 09:39 Dose: 2 tablet Documented by: Valsartan (Diovan -) 160 mg PO DAILY [facility] Last Admin: 01/11/20 09:39 Dose: 160 mg Documented by: - Objective Vital Signs: Vital Signs Temperature 97.9 F 01/11/20 09:00 Pulse Rate 86 01/11/20 09:00 Respiratory Rate 18 01/11/20 09:00 Blood Pressure 134/81 01/11/20 09:00 O2 Sat by Pulse Oximetry (%) 94 L 01/11/20 09:00 Constitutional: Yes: No Distress, Calm Neck: Yes: Supple Cardiovascular: Yes: Regular Rate and Rhythm Respiratory: Yes: Regular, CTA Bilaterally Gastrointestinal: Yes: Normal Bowel Sounds, Soft Edema: No Wound/Incision: Yes: Dressing Dry and Intact Labs: CBC, BMP 01/11/20 07:06 01/11/20 07:06 INR, PTT INR 1.22 (0.83-1.09) H 01/07/20 14:54 Problem List - Problems (1) Syncope Code(s): R55 - SYNCOPE AND COLLAPSE Qualifiers: Syncope type: vasovagal syncope Qualified Code(s): R55 - Syncope and collapse (2) Hypertension Code(s): I10 - ESSENTIAL (PRIMARY) HYPERTENSION Qualifiers: Hypertension type: essential hypertension Qualified Code(s): I10 - Essential (primary) hypertension Assessment/Plan 1. Syncope likely vasovagal 2. Post RIGHT femur osteotomy, tumor curettage/biopsy, bone graft, plate fixati on, evacuation of hematoma with cauterization bleeding profunda femoral artery 3. HTN PLAN: 1. Post operative management per surgical team 2. Continue Norvasc 5 mg QD and Diovan 160 mg QD as hemodynamics tolerate 3. PT as tolerated, analgesia as needed and DVT prophylaxis
--- NOTE | 2020-01-11 15:01 | PN ---
Physical Exam: SUBJECTIVE: Patient seen and examined at bedside, leg stiffness has not improved, no acute events overnight. reports some bleeding from the drain site during PT OBJECTIVE: Vital Signs Period Temp Pulse Resp BP Sys/Clark Pulse Ox Last 24 Hr 97.9 F-99.4 F 77-86 18-20 134-153/76-92 94-98 GENERAL: The patient is awake, alert, and fully oriented, in no acute distress. HEAD: Normal with no signs of trauma. EYES: PERRL, extraocular movements intact, sclera anicteric, conjunctiva clear. ENT: Ears normal, nares patent, oropharynx clear without exudates, moist mucous membranes. NECK: Trachea midline, full range of motion, supple. LUNGS: Breath sounds equal, clear to auscultation bilaterally, no wheezes, no crackles, no accessory muscle use. HEART: Regular rate and rhythm, S1, S2 without murmur, rub or gallop. ABDOMEN: obese, Soft, nontender, nondistended, normoactive bowel sounds, no guarding, no rebound, EXTREMITIES: 2+ pulses, warm, well-perfused, no edema. TTP of R thigh, intact dressing, Dry blood, not actively bleeding NEUROLOGICAL: Cranial nerves II through XII grossly intact. Normal speech, gait not observed. Intact motor and sensory functions b/l LE PSYCH: Normal mood, normal affect. SKIN: Warm, dry, normal turgor, no rashes or lesions noted Laboratory Results - last 24 hr 01/11/20 01/11/20 07:06 07:06 WBC 10.4 H RBC 3.33 L Hgb 9.4 L Hct 28.1 L MCV 84.3 MCH 28.4 MCHC 33.6 RDW 14.2 Plt Count 368 MPV 7.3 L Absolute Neuts (auto) 8.3 H Neutrophils % 80.0 Lymphocytes % 10.8 D Monocytes % 5.9 Eosinophils % 2.7 Basophils % 0.6 Nucleated RBC % 0 Sodium 138 Potassium 4.6 Chloride 104 Carbon Dioxide 29 Anion Gap 5 L BUN 14.5 Creatinine 0.5 L Est GFR (CKD-EPI)AfAm 146.45 Est GFR (CKD-EPI)NonAf 126.36 Random Glucose 99 Calcium 8.4 L Phosphorus 3.9 Magnesium 2.2 Total Bilirubin 0.8 AST 37 ALT 51 Alkaline Phosphatase 87 Total Protein 6.0 L Albumin 2.8 L Active Medications Generic Name Dose Route Start Last Admin Trade Name Freq PRN Reason Stop Dose Admin Acetaminophen 1,000 mg 01/07/20 21:30 01/11/20 05:39 Tylenol - PO 1,000 mg Q8H [facility] Administration Albuterol Sulfate 2 puff 01/08/20 10:00 01/11/20 09:39 Ventolin Hfa Inhaler - IH 2 puff BID [facility] Administration Amino Acids 30 ml 01/10/20 08:30 01/11/20 09:38 Prosource No Carb Liquid Pkt PO 30 ml DAILY@0830 [facility] Administration Amlodipine Besylate 5 mg 01/08/20 10:00 01/11/20 09:38 Norvasc - PO 5 mg DAILY [facility] Administration Ascorbic Acid 250 mg 01/10/20 10:00 01/11/20 09:38 Vitamin C - PO 250 mg DAILY [facility] Administration Aspirin 81 mg 01/08/20 10:00 01/11/20 09:38 Ecotrin - PO 81 mg BID [facility] Administration Fluticasone Propionate 1 spray 01/07/20 22:59 01/10/20 21:44 Flonase - NS 1 spray BID PRN Administration NASAL CONGESTION Magnesium Hydroxide 30 ml 01/07/20 22:59 Milk Of Magnesia - PO PRN PRN CONSTIPATION Multivitamins/Minerals/Vitamin C 1 tab 01/10/20 10:00 01/11/20 09:37 Tab-A-Vit - PO 1 tab DAILY [facility] Administration Ondansetron HCl 4 mg 01/07/20 22:59 Zofran Injection IVPUSH Q6H PRN NAUSEA AND/OR VOMITING Pantoprazole Sodium 40 mg 01/08/20 10:00 01/11/20 09:38 Protonix - PO 40 mg DAILY [facility] Administration Polyethylene Glycol 17 gm 01/09/20 10:00 01/11/20 09:38 Miralax (For Daily Use) - PO 17 gm DAILY [facility] Administration Senna/Docusate Sodium 2 tablet 01/08/20 10:00 01/11/20 09:39 Pericolace - PO 2 tablet BID [facility] Administration Valsartan 160 mg 01/08/20 10:00 01/11/20 09:39 Diovan - PO 160 mg DAILY [facility] Administration ASSESSMENT/PLAN: 49 Y M with a PMH of HTN, and a recent diagnosis of distal femoral tumor presented from [place] s/p RIGHT femur osteotomy, tumor curettage/biopsy, bone graft, plate fixation (on 01/04/[address] Fabien Durbin.) complicated by hematoma, admitted for I&D & evacuation of hematoma #Right femur enchondroma/osteosarcoma - Pending pathology report - s/p RIGHT femur osteotomy, tumor curettage/biopsy, bone graft, plate fixation POD#6 w/ - s/p I&D & evacuation of hematoma RIGHT thigh POD #3 w/Dr. Durbin Pain management: Dilaudid 2gm Q4H PRN and Oxycodone 10mg Q4H PRN Added bowel regimen ASA 81mg BID - VICTOR HUGO drain removed #HTN - Continue with home medications: - Holding HCTZ, due to a syncopal episode, Low BP - Valsartan 160mg QD - Norvasc 5mg QD DVT PPX - ASA 81mg PO BID x 6 weeks - SCD's FEN - No standing fluids - Will continue to monitor electrolytes - Regular Diet Dispo - Will continue to monitor in [place]. Pending Rehab Placement Visit type - Emergency Visit Emergency Visit: Yes ED Registration Date: 01/05/20 Care time: The patient presented to the Emergency Department on the above date and was hospitalized for further evaluation of their emergent condition. - New Patient This patient is new to me today: No - Critical Care Critical Care patient: No - Discharge Referral Referred to [facility] Med P.C.: No ATTENDING PHYSICIAN STATEMENT I saw and evaluated the patient. I reviewed the resident's note and discussed the case with the resident. I agree with the resident's findings and plan as documented. SUBJECTIVE: OBJECTIVE: ASSESSMENT AND PLAN:
--- NOTE | 2020-01-11 18:17 | PN ---
Progress Note (short form) - Note Progress Note: Doing well Apyrexial Vitals all stable. C/O lateral thigh incisional pain Walked 2 times in the hallway NO NVD Bandage /Dressing dry Awaiting pathology report PLAN Mobilize with PT [facility]AT D/C home tomorrow Pain mx see in office in 2 weeks for wound check
--- NOTE | 2020-01-11 18:49 | PN ---
Teaching Attending Note Name of Resident: Alina Veras ATTENDING PHYSICIAN STATEMENT I saw and evaluated the patient. I reviewed the resident's note and discussed the case with the resident. I agree with the resident's findings and plan as documented. SUBJECTIVE: Patient continues to c/o having right leg pain. OBJECTIVE: Vital Signs Temperature 98.3 F 01/11/20 14:00 Pulse Rate 81 01/11/20 14:00 Respiratory Rate 18 01/11/20 14:00 Blood Pressure 148/92 01/11/20 14:00 O2 Sat by Pulse Oximetry (%) 98 01/11/20 14:00 PE:per resident's note CBCD WBC 10.4 K/mm3 (4.0-10.0) H 01/11/20 07:06 RBC 3.33 M/mm3 (4.00-5.60) L 01/11/20 07:06 Hgb 9.4 GM/dL (11.7-16.9) L 01/11/20 07:06 Hct 28.1 % (35.4-49) L 01/11/20 07:06 MCV 84.3 fl (80-96) 01/11/20 07:06 MCHC 33.6 g/dl (32.0-35.9) 01/11/20 07:06 RDW 14.2 % (11.9-15.9) 01/11/20 07:06 Plt Count 368 K/MM3 (134-434) 01/11/20 07:06 MPV 7.3 fl (7.5-11.1) L 01/11/20 07:06 CMP Sodium 138 mmol/L (136-145) 01/11/20 07:06 Potassium 4.6 mmol/L (3.5-5.1) 01/11/20 07:06 Chloride 104 mmol/L (98-107) 01/11/20 07:06 Carbon Dioxide 29 mmol/L (21-32) 01/11/20 07:06 Anion Gap 5 MMOL/L (8-16) L 01/11/20 07:06 BUN 14.5 mg/dL (7-18) 01/11/20 07:06 Creatinine 0.5 mg/dL (0.55-1.3) L 01/11/20 07:06 Random Glucose 99 mg/dL (74-106) 01/11/20 07:06 Calcium 8.4 mg/dL (8.5-10.1) L 01/11/20 07:06 Total Bilirubin 0.8 mg/dL (0.2-1) 01/11/20 07:06 AST 37 U/L (15-37) 01/11/20 07:06 ALT 51 U/L (13-61) 01/11/20 07:06 Alkaline Phosphatase 87 U/L (45-117) 01/11/20 07:06 Total Protein 6.0 g/dl (6.4-8.2) L 01/11/20 07:06 Albumin 2.8 g/dl (3.4-5.0) L 01/11/20 07:06 CARDIAC ENZYMES Troponin I 0.05 ng/ml (0.00-0.05) 01/06/20 18:00 Current Medications Generic Name Dose Route Start Last Admin Trade Name Freq PRN Reason Stop Dose Admin Acetaminophen 1,000 mg 01/07/20 21:30 01/11/20 15:06 Tylenol - PO 1,000 mg Q8H [facility] Administration Albuterol Sulfate 2 puff 01/08/20 10:00 01/11/20 09:39 Ventolin Hfa Inhaler - IH 2 puff BID [facility] Administration Amino Acids 30 ml 01/10/20 08:30 01/11/20 09:38 Prosource No Carb Liquid Pkt PO 30 ml DAILY@0830 [facility] Administration Amlodipine Besylate 5 mg 01/08/20 10:00 01/11/20 09:38 Norvasc - PO 5 mg DAILY [facility] Administration Ascorbic Acid 250 mg 01/10/20 10:00 01/11/20 09:38 Vitamin C - PO 250 mg DAILY [facility] Administration Aspirin 81 mg 01/08/20 10:00 01/11/20 09:38 Ecotrin - PO 81 mg BID [facility] Administration Fluticasone Propionate 1 spray 01/07/20 22:59 01/10/20 21:44 Flonase - NS 1 spray BID PRN Administration NASAL CONGESTION Magnesium Hydroxide 30 ml 01/07/20 22:59 Milk Of Magnesia - PO PRN PRN CONSTIPATION Multivitamins/Minerals/Vitamin C 1 tab 01/10/20 10:00 01/11/20 09:37 Tab-A-Vit - PO 1 tab DAILY [facility] Administration Ondansetron HCl 4 mg 01/07/20 22:59 Zofran Injection IVPUSH Q6H PRN NAUSEA AND/OR VOMITING Oxycodone HCl 10 mg 01/11/20 17:21 01/11/20 17:40 Roxicodone - PO 10 mg Q4H PRN Administration PAIN LEVEL 6-10 Pantoprazole Sodium 40 mg 01/08/20 10:00 01/11/20 09:38 Protonix - PO 40 mg DAILY [facility] Administration Polyethylene Glycol 17 gm 01/09/20 10:00 01/11/20 09:38 Miralax (For Daily Use) - PO 17 gm DAILY [facility] Administration Senna/Docusate Sodium 2 tablet 01/08/20 10:00 01/11/20 09:39 Pericolace - PO 2 tablet BID [facility] Administration Valsartan 160 mg 01/08/20 10:00 01/11/20 09:39 Diovan - PO 160 mg DAILY [facility] Administration Home Medications Medication Instructions Recorded Albuterol Sulfate [Albuterol 8.5 gm IH BID 01/03/20 Sulfate Hfa] Amlodipine Besylate 5 mg PO DAILY 01/03/20 Fluticasone Prop 0.05% Nasal 1 - 2 spray NS BID PRN 01/03/20 [Flonase -] Hydrochlorothiazide [Hctz -] 25 mg PO DAILY 01/03/20 Valsartan [Diovan] 160 mg PO DAILY 01/03/20 Microbiology 01/04/20 13:37 Body Fluid - Other Gram Stain - Final 01/04/20 13:37 Body Fluid - Other Body Fluid Culture - Final NO GROWTH OF AEROBIC ORGANISMS AFTER 48 HOURS INCUBATION 01/04/20 13:37 Body Fluid - Other Anaerobic Culture - Final NO ANAEROBES WERE ISOLATED ASSESSMENT AND PLAN: This patient is a 49yom with Pmhx of HTN, and a recently diagnoses distal femur tumor who presented to [facility] for resection of tumor/Bx, and was transferred to [facility] due to R thigh hematoma which was evacuated #S/p R distal femur enchondroma resection/Bx by Dr Yates continue pain meds.as per Dr Yates, possible dc in am as per dr Yates # S/p evacuation of R thigh hematoma by Dr Yates # H/o HTN continue home meds # constipation :bowel regimen continue # hyperglycemia DVt Px: ECASA 81mg po bid x 6weeks as per ortho Dr Yates possible dc in am as per dr yates
[2020-01-11] MEDS: FLUTICASONE PROP 0.05% 16 GM NASAL SPRAY NS PRN (21:57)
[2020-01-12] MEDS: ACETAMINOPHEN 500 MG TABLET (FP) PO SCH ×2 (06:44→13:21)
[2020-01-12] MEDS: oxyCODONE HCL 5 MG TABLET PO PRN ×3 (06:47→15:39)
[2020-01-12] MEDS: SENNOSIDES/DOCUSATE COMBO (SENNA PLUS) TABLET (UD) PO SCH (09:30)
[2020-01-12] MEDS: ASPIRIN COATED 81 MG TABLET.EC PO SCH (09:30)
[2020-01-12] MEDS: MULTIVITAMINS (DAILY MVI) TABLET (FP) PO SCH (09:30)
[2020-01-12] MEDS: PANTOPRAZOLE 40 MG TABLET PO SCH (09:31)
[2020-01-12] MEDS: ASCORBIC ACID 250 MG TABLET (FP) PO SCH (09:31)
[2020-01-12] MEDS: amLODIPine BESYLATE 5 MG TABLET (FP) PO SCH (09:31)
[2020-01-12] MEDS: VALSARTAN 160 MG TABLET PO SCH (09:31)
[2020-01-12] MEDS: AMINO ACIDS/PROTEIN HYDROLYS 30 ML LIQUID.PKT PO SCH (09:32)
[2020-01-12] MEDS: ALBUTEROL SO4 HFA INHALER IH SCH (09:33)
[2020-01-12 09:42] LABS: BASO % 0.3 % (0-2.0); EOS % 3.8 % (0-4.5); HEMATOCRIT 29.2 % (35.4-49); HEMOGLOBIN 9.8 GM/dL (11.7-16.9); LYMPH % 12.5 % (8-40); MCH 28.2 pg (25.7-33.7); MCHC 33.4 g/dl (32.0-35.9); MEAN CELL VOLUME 84.2 fl (80-96); MONO % 3.9 % (3.8-10.2); NEUT % 79.5 % (42.8-82.8); PLATELET COUNT 410 K/MM3 (134-434); RBC 3.46 M/mm3 (4.00-5.60); RDW 14.1 % (11.9-15.9); WHITE BLOOD COUNT 10.4 K/mm3 (4.0-10.0)
[2020-01-12] MEDS: POLYETHYLENE GLYCOL 3350 119 GM BTL PO SCH (09:48)
[2020-01-12 10:14] LABS: ALBUMIN 2.9 g/dl (3.4-5.0); BILIRUBIN,TOTAL 0.7 mg/dL (0.2-1); BLOOD UREA NITROGEN 17.8 mg/dL (7-18); CALCIUM 8.3 mg/dL (8.5-10.1); CREATININE 0.8 mg/dL (0.55-1.3); MAGNESIUM 2.2 mg/dL (1.8-2.4); PHOSPHOROUS 3.2 mg/dL (2.5-4.9); POTASSIUM 4.2 mmol/L (3.5-5.1); TOT PROT 6.1 g/dl (6.4-8.2)
--- NOTE | 2020-01-12 10:27 | PN ---
Progress Note, Physician History of Present Illness: Denies recurrent near or true syncope, pain adequately controlled, ambulating. - Current Medication List Current Medications: Active Medications Acetaminophen (Tylenol -) 1,000 mg PO Q8H [facility] Last Admin: 01/12/20 06:44 Dose: 1,000 mg Documented by: Albuterol Sulfate (Ventolin Hfa Inhaler -) 2 puff IH BID [facility] Last Admin: 01/12/20 09:33 Dose: 2 puff Documented by: Amino Acids (Prosource No Carb Liquid Pkt) 30 ml PO DAILY@0830 [facility] Last Admin: 01/12/20 09:32 Dose: 30 ml Documented by: Amlodipine Besylate (Norvasc -) 5 mg PO DAILY [facility] Last Admin: 01/12/20 09:31 Dose: 5 mg Documented by: Ascorbic Acid (Vitamin C -) 250 mg PO DAILY [facility] Last Admin: 01/12/20 09:31 Dose: 250 mg Documented by: Aspirin (Ecotrin -) 81 mg PO BID [facility] Last Admin: 01/12/20 09:30 Dose: 81 mg Documented by: Fluticasone Propionate (Flonase -) 1 spray NS BID PRN PRN Reason: NASAL CONGESTION Last Admin: 01/11/20 21:57 Dose: 1 spray Documented by: Magnesium Hydroxide (Milk Of Magnesia -) 30 ml PO PRN PRN PRN Reason: CONSTIPATION Multivitamins/Minerals/Vitamin C (Tab-A-Vit -) 1 tab PO DAILY [facility] Last Admin: 01/12/20 09:30 Dose: 1 tab Documented by: Ondansetron HCl (Zofran Injection) 4 mg IVPUSH Q6H PRN PRN Reason: NAUSEA AND/OR VOMITING Oxycodone HCl (Roxicodone -) 10 mg PO Q4H PRN PRN Reason: PAIN LEVEL 6-10 Last Admin: 01/12/20 06:47 Dose: 10 mg Documented by: Pantoprazole Sodium (Protonix -) 40 mg PO DAILY [facility] Last Admin: 01/12/20 09:31 Dose: 40 mg Documented by: Polyethylene Glycol (Miralax (For Daily Use) -) 17 gm PO DAILY [facility] Last Admin: 01/12/20 09:48 Dose: Not Given Documented by: Senna/Docusate Sodium (Pericolace -) 2 tablet PO BID [facility] Last Admin: 01/12/20 09:30 Dose: 2 tablet Documented by: Valsartan (Diovan -) 160 mg PO DAILY [facility] Last Admin: 01/12/20 09:31 Dose: 160 mg Documented by: - Objective Vital Signs: Vital Signs Temperature 98.5 F 01/12/20 06:00 Pulse Rate 78 01/12/20 06:00 Respiratory Rate 20 01/12/20 06:00 Blood Pressure 108/77 01/12/20 06:00 O2 Sat by Pulse Oximetry (%) 94 L 01/12/20 06:00 Constitutional: Yes: No Distress, Calm Neck: Yes: Supple Cardiovascular: Yes: Regular Rate and Rhythm Respiratory: Yes: Regular, CTA Bilaterally Gastrointestinal: Yes: Normal Bowel Sounds, Soft Edema: No Wound/Incision: Yes: Dressing Dry and Intact Labs: CBC, BMP 01/12/20 09:34 01/12/20 09:34 INR, PTT INR 1.22 (0.83-1.09) H 01/07/20 14:54 Problem List - Problems (1) Syncope Code(s): R55 - SYNCOPE AND COLLAPSE Qualifiers: Syncope type: vasovagal syncope Qualified Code(s): R55 - Syncope and collapse (2) Hypertension Code(s): I10 - ESSENTIAL (PRIMARY) HYPERTENSION Qualifiers: Hypertension type: essential hypertension Qualified Code(s): I10 - Essential (primary) hypertension Assessment/Plan 1. Syncope likely vasovagal 2. Post RIGHT femur osteotomy, tumor curettage/biopsy, bone graft, plate fixation, evacuation of hematoma with cauterization bleeding profunda femoral artery 3. HTN PLAN: 1. Post operative management per surgical team 2. Continue Norvasc 5 mg QD and Diovan 160 mg QD as hemodynamics tolerate 3. PT as tolerated, analgesia as needed and DVT prophylaxis, d/c planning per ortho surgery
--- NOTE | 2020-01-12 14:49 | DS ---
Physical Exam: SUBJECTIVE: Patient seen and examined at bedside, mild improvement of leg stiffness , no acute events overnight. Reports that he will have PT therapy at home and will f/u with Dr. yates in 2 weeks. OBJECTIVE: Vital Signs Period Temp Pulse Resp BP Sys/Clark Pulse Ox Last 24 Hr 97.5 F-98.5 F 78-84 18-20 108-135/51-77 94-98 PHYSICAL EXAM GENERAL: The patient is awake, alert, and fully oriented, in no acute distress. HEAD: Normal with no signs of trauma. EYES: PERRL, extraocular movements intact, sclera anicteric, conjunctiva clear. ENT: Ears normal, nares patent, oropharynx clear without exudates, moist mucous membranes. NECK: Trachea midline, full range of motion, supple. LUNGS: Breath sounds equal, clear to auscultation bilaterally, no wheezes, no crackles, no accessory muscle use. HEART: Regular rate and rhythm, S1, S2 without murmur, rub or gallop. ABDOMEN: obese, Soft, nontender, nondistended, normoactive bowel sounds, no guarding, no rebound, EXTREMITIES: 2+ pulses, warm, well-perfused, no edema. TTP of R thigh, intact dr yip, clean NEUROLOGICAL: Cranial nerves II through XII grossly intact. Normal speech, gait not observed. Intact motor and sensory functions b/l LE PSYCH: Normal mood, normal affect. SKIN: Warm, dry, normal turgor, no rashes or lesions noted LABS Laboratory Results - last 24 hr 01/11/20 01/12/20 01/12/20 10:15 09:34 09:34 WBC 10.4 H RBC 3.46 L Hgb 9.8 L Hct 29.2 L MCV 84.2 MCH 28.2 MCHC 33.4 RDW 14.1 Plt Count 410 MPV 7.0 L Absolute Neuts (auto) 8.2 H Neutrophils % 79.5 Lymphocytes % 12.5 Monocytes % 3.9 Eosinophils % 3.8 Basophils % 0.3 Nucleated RBC % 0 Sodium 140 Potassium 4.2 Chloride 104 Carbon Dioxide 29 Anion Gap 7 L BUN 17.8 Creatinine 0.8 Est GFR (CKD-EPI)AfAm 120.72 Est GFR (CKD-EPI)NonAf 104.16 Random Glucose 176 H Calcium 8.3 L Phosphorus 3.2 Magnesium 2.2 Total Bilirubin 0.7 AST 35 ALT 71 H Alkaline Phosphatase 107 Total Protein 6.1 L Albumin 2.9 L COVID-19 ([facility]) Not detected HOSPITAL COURSE: Date of Admission:01/05/20 49 Y M with a PMH of HTN, and a recent diagnosis of distal femoral tumor presented from [place] s/p RIGHT femur osteotomy, tumor curettage/biopsy, bone graft, plate fixation (on 01/04/[address] Fabien Yates.) complicated by hematoma, admitted for I&D & evacuation of hematoma. 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 s/p RIGHT femur osteotomy, tumor curettage/biopsy, bone graft, plate fixation POD#7and s/p I&D & evacuation of hematoma RIGHT thigh POD #4 w/Dr. Yates. Patient remained afibrile and hemodynamically stable. D/C'd home med HCTZ due to adverse effects/interactions, continued all other home meds. Patient at this time is medically and surgically stable for discharge and discharged him with the following instructions, prescriptions and referrals. Date of Discharge: 01/12/20 Minutes to complete discharge: 36 Discharge Summary Problems reviewed: Yes Reason For Visit: BENIGN NEOPLASM OF LONG BONE Current Active Problems Hypertension (Chronic) Condition: Good - Instructions Diet, Activity, Other Instructions: YOUR VISIT You came to the hospital after you had a surgery complicated by a hematoma ( collection of blood). You were admitted to the hospital for the removal of your hematoma. You are now stable and may return home. MEDICATIONS Please continue to take your home medications as prescribed. You have *NEW* medication. - Please START to take Oxycodone 10mg for every 6 hours or As needed. We will provide you with 3day supply, Please call Dr. Westfall' office if your pain is not well controlled after 3 days. - Please START to take ASA 81mg two times daily for 5 more weeks. - Please START to take Colace 300mg (3 pills) at night for 1 week to relief constipation - Please DO NOT take your Hydrochlorothiazide (HCTZ) 25mg Daily, Please see your Primary care doctor within 1 week to repeat blood work. ADDITIONAL CARE Please make an appointment to see your primary care provider within 1 week from today to discuss the hospital course and to repeat labs Please make an appointment to see your orthopedics, Dr. Yates, [facility], in 2 weeks for evaluation of your surgical site and to discuss physical therapy. call for appointment ADDITIONAL INFORMATION Please call 911 or come directly to the emergency department if you experience recurrence of the symptoms that brought you to the hospital, unusual headache, vision change, shortness of breath, chest pain, numbness, tingling, loss of alertness/awareness, loss of function, unusual bleeding or any alarming symptoms. Wound care Keep your incision clean, dry and covered at all times. Change dressing every 3 days or as needed to maintain dressing at all times Additionally It is important to modify diet, lose weight, increase exercise, and continue to take your home medications. - Do NOT smoke or use tobacco - Exercise at least 30-60min of activity daily, try to walk fast to increase your heart rate - Eat healthier diet: Vegetables and fruits Lean meats and fish Whole grains Healthy fats, such as olive oil - Maintain a healthy weight - Manage stress. Breathing exercises, meditation, or even wellness apps on your phone can be useful with managing stress. - Get regular health screening: blood pressure, cholesterol level and type 2 diabetes screening If you have a condition such as high cholesterol, high blood pressure or diabetes, your doctor may prescribe medications and recommend lifestyle changes. Make sure to take your medications as your doctor prescribes and follow a healthy-lifestyle plan. Referrals: Fabien Yates MD [Staff Physician] - 2 Weeks (f/u in 2 weeks for wound check) Disposition: HOME - Home Medications Comprehensive Discharge Medication List: Ambulatory Orders Albuterol Sulfate [Albuterol Sulfate Hfa] 8.5 gm IH BID 01/03/20 Amlodipine Besylate 5 mg PO DAILY 01/03/20 Fluticasone Prop 0.05% Nasal [Flonase -] 1 - 2 spray NS BID PRN 01/03/20 Valsartan [Diovan] 160 mg PO DAILY 01/03/20 Aspirin Coated [Ecotrin -] 81 mg PO BID #70 tablet.ec 01/12/20 Docusate Sodium [Colace] 300 mg PO HS #21 capsule 01/12/20 Oxycodone HCl 10 mg PO Q6H PRN #12 tablet MDD 4 01/12/20 Sennosides/Docusate Sodium [Pericolace -] 2 tablet PO BID tablet 01/12/20 Walker [Ultra-Light Rollator] 1 each ONCE #1 each 01/12/20 This patient is new to me today: No Emergency Visit: Yes ED Registration Date: 01/05/20 Care time: The patient presented to the Emergency Department on the above date and was hospitalized for further evaluation of their emergent condition. Critical Care patient: No - Discharge Referral Referred to [facility] No ATTENDING PHYSICIAN STATEMENT I saw and evaluated the patient. I reviewed the resident's note and discussed the case with the resident. I agree with the resident's findings and plan as documented. SUBJECTIVE: OBJECTIVE: ASSESSMENT AND PLAN:
[2020-01-12 14:54] VITALS: BP 128/53; PULSE 79; TEMP 98.3
--- NOTE | 2020-01-12 18:53 | PN ---
Teaching Attending Note Name of Resident: Alina Veras ATTENDING PHYSICIAN STATEMENT I saw and evaluated the patient. I reviewed the resident's note and discussed the case with the resident. I agree with the resident's findings and plan as documented. SUBJECTIVE: OBJECTIVE: Vital Signs Temperature 98.3 F 01/12/20 14:00 Pulse Rate 79 01/12/20 14:00 Respiratory Rate 20 01/12/20 14:00 Blood Pressure 128/53 L 01/12/20 14:00 O2 Sat by Pulse Oximetry (%) 97 01/12/20 14:00 PE: per resident's note CBCD WBC 10.4 K/mm3 (4.0-10.0) H 01/12/20 09:34 RBC 3.46 M/mm3 (4.00-5.60) L 01/12/20 09:34 Hgb 9.8 GM/dL (11.7-16.9) L 01/12/20 09:34 Hct 29.2 % (35.4-49) L 01/12/20 09:34 MCV 84.2 fl (80-96) 01/12/20 09:34 MCHC 33.4 g/dl (32.0-35.9) 01/12/20 09:34 RDW 14.1 % (11.9-15.9) 01/12/20 09:34 Plt Count 410 K/MM3 (134-434) 01/12/20 09:34 MPV 7.0 fl (7.5-11.1) L 01/12/20 09:34 CMP Sodium 140 mmol/L (136-145) 01/12/20 09:34 Potassium 4.2 mmol/L (3.5-5.1) 01/12/20 09:34 Chloride 104 mmol/L (98-107) 01/12/20 09:34 Carbon Dioxide 29 mmol/L (21-32) 01/12/20 09:34 Anion Gap 7 MMOL/L (8-16) L 01/12/20 09:34 BUN 17.8 mg/dL (7-18) 01/12/20 09:34 Creatinine 0.8 mg/dL (0.55-1.3) 01/12/20 09:34 Random Glucose 176 mg/dL (74-106) H 01/12/20 09:34 Calcium 8.3 mg/dL (8.5-10.1) L 01/12/20 09:34 Total Bilirubin 0.7 mg/dL (0.2-1) 01/12/20 09:34 AST 35 U/L (15-37) 01/12/20 09:34 ALT 71 U/L (13-61) H 01/12/20 09:34 Alkaline Phosphatase 107 U/L (45-117) 01/12/20 09:34 Total Protein 6.1 g/dl (6.4-8.2) L 01/12/20 09:34 Albumin 2.9 g/dl (3.4-5.0) L 01/12/20 09:34 CARDIAC ENZYMES Troponin I 0.05 ng/ml (0.00-0.05) 01/06/20 18:00 Home Medications Medication Instructions Recorded Albuterol Sulfate [Albuterol 8.5 gm IH BID 01/03/20 Sulfate Hfa] Amlodipine Besylate 5 mg PO DAILY 01/03/20 Fluticasone Prop 0.05% Nasal 1 - 2 spray NS BID PRN 01/03/20 [Flonase -] Valsartan [Diovan] 160 mg PO DAILY 01/03/20 Aspirin Coated [Ecotrin -] 81 mg PO BID #70 tablet.ec 01/12/20 Docusate Sodium [Colace] 300 mg PO HS #21 capsule 01/12/20 Oxycodone HCl 10 mg PO Q6H PRN #12 tablet MDD 4 01/12/20 Sennosides/Docusate Sodium 2 tablet PO BID tablet 01/12/20 [Pericolace -] Walker [Ultra-Light Rollator] 1 each ONCE #1 each 01/12/20 ASSESSMENT AND PLAN: This patient is a 49yom with Pmhx of HTN, and a recently diagnoses distal femur tumor who presented to [facility] for resection of tumor/Bx, and was transferred to [facility] due to R thigh hematoma which was evacuated #S/p R distal femur enchondroma resection/Bx by Dr Yates continue pain meds.as per Dr Yates, dc patient home with a walker , as per dr yates # S/p evacuation of R thigh hematoma by Dr Yates # H/o HTN continue home meds # constipation :bowel regimen continue # hyperglycemia continue home meds DVt Px: ECASA 81mg po bid x 6weeks as per ortho Dr Yates dc patient home as per dr yates with a walker , patient is going to his girl friend's house.
== END 2020-01-12 18:29 | disposition home or self-care (01) | DRG 464 ==
LOC: FASUSAT 08:53 → FM/S 16:18 → FASUSAT 01-05 21:02 → UNDODISIN 01-07 09:30 → J8W 01-07 10:00
PROVIDERS: ADMIT Orthopaedic Surgery Orthopaedic Surgery of the Spine; ATTEND Internal Medicine
PROC: 0JBL0ZZ Excision of Right Upper Leg Subcutaneous Tissue and Fascia, Open Approach (ICD-10-PCS; 2020-01-04)
PROC: 0QUB0KZ Supplement Right Lower Femur with Nonautologous Tissue Substitute, Open Approach (ICD-10-PCS; 2020-01-04)
PROC: 0SH904Z Insertion of Internal Fixation Device into Right Hip Joint, Open Approach (ICD-10-PCS; principal; 2020-01-04 12:54)
PROC: 0YQCXZZ Repair Right Upper Leg, External Approach (ICD-10-PCS; 2020-01-07)
PROC: 04QK0ZZ Repair Right Femoral Artery, Open Approach (ICD-10-PCS; 2020-01-07)
PROC: 0Y9C0ZZ Drainage of Right Upper Leg, Open Approach (ICD-10-PCS; 2020-01-07)
DX: C40.21 Malignant neoplasm of long bones of right lower limb (principal); M96.840 Postprocedural hematoma of a musculoskeletal structure following a musculoskeletal system procedure; I10 Essential (primary) hypertension; E78.5 Hyperlipidemia, unspecified; L73.2 Hidradenitis suppurativa; R55 Syncope and collapse; K59.00 Constipation, unspecified; Y83.8 Other surgical procedures as the cause of abnormal reaction of the patient, or of later complication, without mention of misadventure at the time of the procedure; R73.9 Hyperglycemia, unspecified
CPT/HCPCS: 36415; 71045-TC-FY; 73502-TC-RT-FY; 73552-TC-RT-FY; 73562-TC-RT-FY; 73590-TC-RT-FY; 80048; 80053; 82962; 83036; 83735; 84100; 84484; 85025; 85027; 85610; 85730; 86850; 86900; 86901; 86922; 87070; 87075; 87205; 93005; 93971-TC; 94010; 94760; 97116-GP; 97161-GP; C9803; J0131; U0003

== ENCOUNTER 2020-03-17 17:08 | Emergency (ER) | payer OTHER ==
[2020-03-17 17:34] VITALS: BMI 42.0
[2020-03-17] MEDS ORDERED: KETOROLAC TROMETHAMINE 30 MG/1 ML VIAL IVPUSH ONE (17:58)
[2020-03-17] MEDS ORDERED: ONDANSETRON 4 MG/2 ML VIAL IVPUSH ONE (17:58)
[2020-03-17] MEDS ORDERED: SODIUM CHLORIDE 0.9% 500 ML INFUS.BAG IV ONE (18:01)
[2020-03-17] MEDS ORDERED: ONDANSETRON 4 MG/2 ML VIAL ONE (18:35)
[2020-03-17] MEDS ORDERED: KETOROLAC TROMETHAMINE 30 MG/1 ML VIAL ONE (18:35)
[2020-03-17 18:59] LABS: BASO % 0.9 % (0-2.0); EOS % 3.9 % (0-4.5); HEMATOCRIT 43.2 % (35.4-49); HEMOGLOBIN 14.2 GM/dL (11.7-16.9); LYMPH % 15.3 % (8-40); MCH 26.7 pg (25.7-33.7); MCHC 32.9 g/dl (32.0-35.9); MEAN CELL VOLUME 81.1 fl (80-96); MEAN PLT VOLUME 8.2 fl (7.5-11.1); MONO % 7.2 % (3.8-10.2); NEUT % 72.7 % (42.8-82.8); PLATELET COUNT 315 K/MM3 (134-434); RBC 5.33 M/mm3 (4.00-5.60); RDW 14.7 % (11.9-15.9); WHITE BLOOD COUNT 10.2 K/mm3 (4.0-10.0)
[2020-03-17 19:07] LABS: INR 1.15 (0.83-1.09); PROTHROMBIN TIME (PATIENT) 13.8 SEC (9.7-13.0)
[2020-03-17 19:17] LABS: POTASSIUM 4.1 mmol/L (3.5-5.1)
[2020-03-17 19:19] LABS: CALCIUM 9.2 mg/dL (8.5-10.1)
[2020-03-17 19:20] LABS: ALBUMIN 4.2 g/dl (3.4-5.0); BLOOD UREA NITROGEN 16.1 mg/dL (7-18)
[2020-03-17 19:23] LABS: CREATININE 0.8 mg/dL (0.55-1.3)
[2020-03-17 19:24] LABS: BILIRUBIN,TOTAL 0.3 mg/dL (0.2-1); TOT PROT 7.6 g/dl (6.4-8.2)
[2020-03-17 19:47] LABS: EPI CELLS 13 /uL (0-25.1); HYALINE CASTS 6 /uL (0-3.1); PH,URINE 5.5 (5.0-8.0); URINE APPEARANCE CLOUDY; URINE BACTERIA 40 /uL (0-1359); URINE BILIRUBIN NEGATIVE (NEGATIVE); URINE COLOR YELLOW; URINE GLUCOSE (UA) NEGATIVE (NEGATIVE); URINE KETONE TRACE (NEGATIVE); URINE LEUK ESTERASE NEGATIVE (NEGATIVE); URINE NITRITE NEGATIVE (NEGATIVE); URINE PROTEIN 1+ (NEGATIVE); URINE RBC 21 /uL (0-23.9); URINE WBC 10 /uL (0-25.8)
[2020-03-17 20:10] LABS: URINE CRYSTALS CALCIUM OXALATE /hpf
[2020-03-17] MEDS ORDERED: morphine CARPU-JECT 4 MG/1 ML DISP.SYRIN IVPUSH ONE (20:31)
[2020-03-17] MEDS ORDERED: morphine SULFATE 4 MG/ML VIAL ONE (20:35)
[2020-03-18] MEDS ORDERED: IBUPROFEN 400 MG TABLET (FP) PO ONE ×2 (00:25→00:32)
[2020-03-18] MEDS ORDERED: IBUPROFEN 600 MG TABLET (FP) PO ONE ×2 (00:33)
[2020-03-18 00:49] VITALS: BP 148/91; PULSE 71; TEMP 98.4
== END 2020-03-18 00:48 | disposition home or self-care (01) ==
LOC: JER 17:08
PROC: 3E0333Z Introduction of Anti-inflammatory into Peripheral Vein, Percutaneous Approach (ICD-10-PCS; principal; 2020-03-17)
PROC: 3E033NZ Introduction of Analgesics, Hypnotics, Sedatives into Peripheral Vein, Percutaneous Approach (ICD-10-PCS; 2020-03-17)
DX: N23 Unspecified renal colic (principal)
CPT/HCPCS: 36415; 74176-TC; 80053; 81003; 82550; 84484; 85025; 85610; 87086; 93005; 93010; 99285-25; C9803; U0003

== ENCOUNTER 2020-04-13 08:03 | Day surgery (SDC) | payer OTHER ==
[2020-04-05 13:16] VITALS: BMI 40.6
[2020-04-13] MEDS ORDERED: MIDAZOLAM HCL 2 MG/2 ML SINGLE DOSE VIAL ONE (10:06)
[2020-04-13] MEDS ORDERED: ONDANSETRON 4 MG/2 ML VIAL IVPUSH PRN (10:42)
[2020-04-13] MEDS ORDERED: KETOROLAC TROMETHAMINE 30 MG/1 ML VIAL ONE (10:43)
[2020-04-13] MEDS ORDERED: KETOROLAC TROMETHAMINE 30 MG/1 ML VIAL IVPUSH PRN (10:43)
[2020-04-13] MEDS ORDERED: LACTATED RINGERS SOLUTION 1,000 ML IV SCH (10:45)
[2020-04-13 12:07] VITALS: TEMP 98.2
[2020-04-13] MEDS ORDERED: oxyCODONE HCL 5 MG TABLET ONE (12:28)
[2020-04-13 13:59] VITALS: BP 125/84; PULSE 65
[2020-04-13] MEDS ORDERED: ALBUTEROL SO4 HFA INHALER IH SCH (22:00)
[2020-04-14] MEDS ORDERED: amLODIPine BESYLATE 5 MG TABLET (FP) PO SCH (10:00)
[2020-04-14] MEDS ORDERED: VALSARTAN 160 MG TABLET PO SCH (10:00)
== END 2020-04-13 14:58 | disposition home or self-care (01) ==
LOC: FASU 08:03
PROVIDERS: ATTEND Orthopaedic Surgery Orthopaedic Surgery of the Spine
PROC: 0SNCXZZ Release Right Knee Joint, External Approach (ICD-10-PCS; principal; 2020-04-13 09:30)
DX: M24.661 Ankylosis, right knee (principal)
CPT/HCPCS: 94760

== ENCOUNTER 2024-01-14 08:55 | Day surgery (SDC) | payer OTHER ==
[2024-01-04 16:56] VITALS: BMI 39.9
[2024-01-14] MEDS ORDERED: BUPIVACAINE HCL/PF 0.25% (2.5MG/ML) 10 ML VIAL ONE (09:56)
[2024-01-14] MEDS ORDERED: PROPOFOL 20 ML ONE ×2 (10:28→11:06)
[2024-01-14] MEDS ORDERED: MIDAZOLAM HCL 2 MG/2 ML SINGLE DOSE VIAL ONE (10:29)
[2024-01-14] MEDS ORDERED: SUCCINYLCHOLINE CHLORIDE 200 MG/10 ML SYRINGE ONE (11:03)
[2024-01-14] MEDS ORDERED: ceFAZolin SODIUM 1 GM VIAL ONE ×3 (11:08)
[2024-01-14] MEDS ORDERED: KETOROLAC TROMETHAMINE 30 MG/1 ML VIAL ONE (11:14)
[2024-01-14] MEDS ORDERED: ONDANSETRON 4 MG/2 ML VIAL ONE (11:14)
[2024-01-14] MEDS ORDERED: DEXAMETHASONE SOD PHOSPHATE 4 MG/1 ML VIAL ONE (11:14)
[2024-01-14] MEDS ORDERED: ACETAMINOPHEN INJECTION 100 ML ONE (11:16)
[2024-01-14] MEDS: BUPIVACAINE HCL/PF 0.25% (2.5MG/ML) 10 ML VIAL IJ ONE (11:17)
[2024-01-14] MEDS ORDERED: LACTATED RINGERS SOLUTION 1,000 ML IV SCH (12:30)
[2024-01-14] MEDS ORDERED: ONDANSETRON 4 MG/2 ML VIAL IVPUSH PRN (12:30)
[2024-01-14] MEDS ORDERED: oxyCODONE HCL 5 MG TABLET PO PRN (12:30)
[2024-01-14] MEDS ORDERED: FENTANYL CITRATE/PF 50 MCG/ML VIAL ONE ×2 (12:39→13:03)
[2024-01-14] MEDS: oxyCODONE HCL 5 MG TABLET PO PRN (13:15)
[2024-01-14] MEDS ORDERED: oxyCODONE HCL 5 MG TABLET ONE ×2 (13:15→14:05)
[2024-01-14 13:36] VITALS: RESP 16; TEMP 97.8
[2024-01-14] MEDS: oxyCODONE HCL 5 MG TABLET PO ONE (14:08)
[2024-01-14 14:42] VITALS: BP 141/84; PULSE 79
== END 2024-01-14 15:53 | disposition home or self-care (01) ==
LOC: FASU 08:55
PROVIDERS: ATTEND Orthopaedic Surgery Sports Medicine
PROC: 0S9C4ZX Drainage of Right Knee Joint, Percutaneous Endoscopic Approach, Diagnostic (ICD-10-PCS; 2024-01-14)
PROC: 0S9C0ZX Drainage of Right Knee Joint, Open Approach, Diagnostic (ICD-10-PCS; 2024-01-14)
PROC: 0SBC4ZZ Excision of Right Knee Joint, Percutaneous Endoscopic Approach (ICD-10-PCS; principal; 2024-01-14 11:17)
DX: M25.061 Hemarthrosis, right knee (principal); S83.281A Other tear of lateral meniscus, current injury, right knee, initial encounter; M65.861 Other synovitis and tenosynovitis, right lower leg; X58.XXXA Exposure to other specified factors, initial encounter; Y92.9 Unspecified place or not applicable; Y93.9 Activity, unspecified
CPT/HCPCS: 82962; 88305-TC; 88313-TC; 94760; J0131

== ENCOUNTER 2024-10-26 00:08 | Emergency (ER) | payer OTHER ==
[2024-10-26 00:21] VITALS: BP 162/100; PULSE 72; RESP 22; TEMP 97.7; BMI 38.4
[2024-10-26] MEDS ORDERED: ONDANSETRON 4 MG/2 ML VIAL ONE (00:45)
[2024-10-26] MEDS ORDERED: KETOROLAC TROMETHAMINE 15 MG/ML VIAL ONE (00:45)
[2024-10-26] MEDS: SODIUM CHLORIDE 0.9% 500 ML INFUS.BAG IV ONE (01:15)
[2024-10-26] MEDS: KETOROLAC TROMETHAMINE 15 MG/ML VIAL IVPUSH ONE (01:16)
[2024-10-26] MEDS: ONDANSETRON 4 MG/2 ML VIAL IVPB ONE (01:16)
[2024-10-26 01:50] LABS: ABSOLUTE IMMATURE GRANULOCYTES 0.03 x10^3/uL (0.0-0.031); BASOPHILS # 0.03 x10^3/uL (0.01-0.08); EOSINOPHIL % 0.7 % (0.8-7.0); EOSINOPHILS # 0.07 x10^3/uL (0.04-0.54); MCHC 31.9 g/dl (32.3-36.5); MEAN CELL VOLUME 84.3 fl (79.0-92.2); MEAN PLT VOLUME 9.3 fl (9.4-12.4); MONOCYTE # 0.43 x10^3/uL (0.30-0.82); MONOCYTE % 4.5 % (5.3-12.2); RDW 13.6 % (12.2-16.1)
[2024-10-26 02:01] LABS: EPI CELLS 4 /uL (0-25.1); HYALINE CASTS 0 /uL (0-3.1); URINE APPEARANCE CLEAR; URINE BACTERIA 5 /uL (0-1359); URINE BILIRUBIN NEGATIVE (NEGATIVE); URINE COLOR YELLOW; URINE GLUCOSE (UA) NEGATIVE (NEGATIVE); URINE KETONE NEGATIVE (NEGATIVE); URINE LEUK ESTERASE NEGATIVE (NEGATIVE); URINE NITRITE NEGATIVE (NEGATIVE); URINE PROTEIN 1+ (NEGATIVE); URINE RBC 2045 /uL (0-23.9); URINE UROBILINOGEN 0.2 mg/dL (0.2-1.0); URINE WBC 8 /uL (0-25.8)
[2024-10-26 02:07] LABS: CO2 28.0 mmol/L (21-32); GLUCOSE,RANDOM 168.0 mg/dL (74-106)
[2024-10-26 02:10] LABS: CREATININE 1.1 mg/dL (0.55-1.3); SGOT/AST 20.0 U/L (15-37); SGPT/ALT 45.0 U/L (13-61)
[2024-10-26 02:12] LABS: TOT PROT 7.3 g/dl (6.4-8.2)
[2024-10-26 02:13] LABS: ALK PHOS 134.0 U/L (45-117)
[2024-10-26] MEDS: LACTATED RINGERS SOLUTION 1000 ML INFUS.BAG IV ONE (03:11)
[2024-10-26 04:19] LABS: HCV DIAGNOSTIC IN-HOUSE W/RFLX NON-REACTIVE (NONREACTIVE); HIV INTERPRETATION NEGATIVE (NEGATIVE)
== END 2024-10-26 03:26 | disposition home or self-care (01) ==
LOC: JER 00:08
PROC: 3E033GC Introduction of Other Therapeutic Substance into Peripheral Vein, Percutaneous Approach (ICD-10-PCS; principal; 2024-10-26)
PROC: 3E0333Z Introduction of Anti-inflammatory into Peripheral Vein, Percutaneous Approach (ICD-10-PCS; 2024-10-26)
PROC: 3E033NZ Introduction of Analgesics, Hypnotics, Sedatives into Peripheral Vein, Percutaneous Approach (ICD-10-PCS; 2024-10-26)
DX: N13.2 Hydronephrosis with renal and ureteral calculous obstruction (principal); R39.15 Urgency of urination; R11.2 Nausea with vomiting, unspecified; R10.31 Right lower quadrant pain; R50.9 Fever, unspecified
CPT/HCPCS: 36415; 74177-TC; 80053; 81003; 83690; 83735; 85025; 86803; 87086; 87389; 99285-25